=== PATIENT | male | born 1995 | race Caucasian/White ===

== ENCOUNTER 2019-10-23 15:10 | Inpatient (IN) | payer BC, OTHER ==
[~2019-10-23 15:10] MED LIST: Calcium Chloride 1 GM/10 ML Abboject SYRINGE ONE; Iopamidol-370 76% 500 ML 1 ML ONE; PHENYLEPHRINE-NS 100 MCG/ML 10 ML SYRINGE ONE; Rocuronium Bromide 10 MG/ML (10ML VIAL) ONE
[2019-10-23] MEDS ORDERED: Propofol 1,000 MG/100 ML VIAL IV ONE (15:15)
[2019-10-23 15:28] LABS: #Basophils 0.1 thou/uL (0.0-0.2); #Eosinphils 0.1 thou/uL (0.0-0.7); #Lymphocytes 4.2 thou/uL (1.20-3.40); #Monocytes 0.4 thou/uL (0.11-0.59); #Neutrophils 13.3 thou/uL (1.40-6.50); %Basophils 0.5 % (0.0-1.0); %Eosinophils 0.3 % (0.0-10.0); %Lymphocytes 23.3 % (21.0-51.0); Hemoglobin 14.8 g/dL (14.0-18.0); Mean Corpuscular HGB CONC 33.4 g/dL (32.0-36.0); Mean Corpuscular Hemoglobin 28.1 pg (27.0-31.0); Mean Corpuscular Volume 84.2 fL (78.0-98.0); Mean Platelet Volume 10.3 fL (7.4-10.4); Platelet Count 233 thou/uL (130-400); RBC Distribution Width 11.9 % (11.5-14.5); Red Blood Cell (RBC) Count 5.25 mill/uL (4.70-6.10); White Blood Cell (WBC) Count 17.9 thou/uL (4.8-10.8)
[2019-10-23 15:29] LABS: MDiff Complete? YES
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
[2019-10-23 15:35] LABS: INR-International Normal Ratio 1.2; Prothrombin Time 14.7 sec (12.0-14.7)
[2019-10-23] MEDS ORDERED: Fentanyl 100 MCG/2 ML VIAL ONE ×2 (15:38→16:04)
[2019-10-23 15:43] LABS: ALT (SGPT) 79 U/L (8-55); AST (SGOT) 143 U/L (5-34); Albumin 4.4 g/dL (3.5-5.0); Alkaline Phosphatase 58 U/L (40-110); Anion Gap 19 mmol/L (10-20); BUN (Urea Nitrogen) 19 mg/dL (8.9-20.6); Bilirubin, Total 0.5 mg/dL (0.2-1.2); Calc. Creatinine Clearance 0 mL/min (70-130); Calcium 8.8 mg/dL (7.8-10.44); Carbon Dioxide 22 mmol/L (22-29); Chloride 102 mmol/L (98-107); Estimated GFR-MDRD 54; Glucose 207 mg/dL (70-105); Potassium 3.8 mmol/L (3.5-5.1); Protein, Total 7.4 g/dL (6.0-8.3); Sodium 139 mmol/L (136-145)
[2019-10-23 15:51] LABS: Acetaminophen Less than 6.0 mcg/mL (10.0-30.0); Alcohol Less than 10 mg/dL (Less than 10); Magnesium 1.8 mg/dL (1.6-2.6); Salicylate Less than 8.0 mg/dL (15.0-30.0)
[2019-10-23] MEDS ORDERED: Adacel (T-DAP) 0.5 ML SYRINGE ONE (15:51)
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
[2019-10-23] MEDS ORDERED: manNITOL 20% 500 ML ONE (16:02)
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
[2019-10-23] MEDS ORDERED: Phenylephrine 10 MG/ML VIAL ONE ×2 (16:04→19:54)
[2019-10-23] MEDS ORDERED: Lidocaine 0.5%/Epinephrine 1:200,000 50 ml Vial ONE (16:10)
[2019-10-23] MEDS ORDERED: Thrombin 5000 UNITS/5 ML VIAL ONE ×3 (16:10→17:03)
[2019-10-23] MEDS ORDERED: Sodium Chloride 0.9% 10 ML ONE (16:11)
[2019-10-23 16:13] LABS: Actual Bicarbonate (HCO3a) 20.3 mEq/L (22-28); Analyzer IN Cardio ER; Base Excess (BEa) -4.5 mEq/L (-2.0 to +3.0); CO2 Tension 36.9 mmHg (35.0-45.0); Calcium, Ionized (arterial) 1.11 mmol/L (1.12-1.30); Carboxyhemoglobin (COHb) 0.3 gm% (0.0-3.0); Hemoglobin (Hb) 14.9 g/dL (14.0-18.0); O2 Tension (PaO2), arterial 77.4 mmHg (80.0-100.0); Potassium - ABG Lab 3.34 mmol/L (3.70-5.30); pH, Arterial 7.36 (7.35-7.45)
[2019-10-23] MEDS ORDERED: Mannitol 12.5 GM/50 ML IV SCH (16:15)
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
[2019-10-23 16:24] LABS: Bacteria/HPF None Seen HPF (None Seen); Bilirubin Negative (Negative); Blood, Urine 3+ (Negative); Clarity Clear (Clear); Glucose, Urine (Dipstick) Normal (Negative); Ketone, Urine Negative (Negative); Leukocyte Negative Leu/uL (Negative); Nitrite Negative (Negative); Protein, Urine (Dipstick) 100 mg/dL (Neg-Trace); RBC/HPF Greater than 50 HPF (0-3); Specific Gravity, Urine 1.045 (1.002-1.036); Squamous Epithelial 0-3 HPF (0-3); Urobilinogen Normal mg/dL (Less than 2)
[2019-10-23 16:25] LABS: ALV-art Gradient 232.975 (0-20)
[2019-10-23 16:33] LABS: Amphetamine Not Detected (NotDetected); Barbiturates Screen Not Detected (NotDetected); Benzodiazepine Screen Not Detected (NotDetected); Cocaine Metabolite Screen Not Detected (NotDetected); Medtox Reader # READER 4; Methadone Not Detected (NotDetected); Methamphetamine Not Detected (NotDetected); Opiate Screen Not Detected (NotDetected); Phencyclidine (PCP) Not Detected (NotDetected); THC/Cannabinoid Screen Not Detected (NotDetected); Tricyclic Screen Not Detected (NotDetected)
[2019-10-23 16:34] LABS: Medtox Control Line Valid? VALID (VALID); Oxycodone Screen Not Detected (NotDetected)
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
[2019-10-23] MEDS ORDERED: metroNIDAZOLE 500 MG/100 ML BAG ONE (16:47)
[2019-10-23] MEDS ORDERED: Dextrose 50% Abboject 50 ML SYRINGE SLOW IVP PRN (17:18)
[2019-10-23] MEDS ORDERED: Dextrose 5% in Water 1,000 ML IV PRN (17:18)
[2019-10-23] MEDS ORDERED: hydrALAZINE 20 MG/ML VIAL SLOW IVP PRN (17:18)
[2019-10-23] MEDS ORDERED: Calcium Chloride 1 GM/10 ML Abboject SYRINGE IVP SCH ×2 (17:30→22:15)
[2019-10-23] MEDS ORDERED: Magnesium 2 GM/50 ML 2 GM in Premix Bag 1 BAG IVPB SCH (17:30)
[2019-10-23] MEDS ORDERED: Ventilator Sedation Protocol 1 EACH FS SCH (17:30)
[2019-10-23] MEDS ORDERED: Morphine 2 MG/ML VIAL SLOW IVP PRN (17:59)
[2019-10-23] MEDS ORDERED: Lorazepam 2 MG/ML VIAL SLOW IVP PRN (17:59)
[2019-10-23] MEDS ORDERED: Propofol BOLUS 1,000 MG/100 ML VIAL IV PRN (17:59)
[2019-10-23] MEDS ORDERED: DISCONTINUE PREVIOUS NARCOTIC PAIN MEDICATIONS AND BENZODIAZEPINES FS SCH (17:59)
[2019-10-23] MEDS ORDERED: Fentanyl BOLUS 250 ML IVPB PRN (17:59)
[2019-10-23] MEDS ORDERED: Albumin 5% 500 ML ONE (18:08)
[2019-10-23] MEDS ORDERED: Lidocaine 1% w/Epinephrine 1:100K 20 ML VIAL ONE (18:28)
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
[2019-10-23] MEDS ORDERED: Rocuronium Bromide 50 MG/5 ML VIAL ONE ×2 (18:59→20:05)
[2019-10-23] MEDS ORDERED: Fosphenytoin Sodium 1,500 MG in Sodium Chloride 0.9% 50 ML IVPB SCH (19:00)
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
[2019-10-23] MEDS ORDERED: Fosphenytoin Sodium 1,500 MG in Sodium Chloride 0.9% 100 ML IVPB SCH (19:15)
[2019-10-23] MEDS ORDERED: PHENYLEPHRINE-NS 100 MCG/ML 10 ML SYRINGE ONE (19:26)
[2019-10-23] MEDS ORDERED: Vancomycin HCl 1.5 GM in Sodium Chloride 0.9% 250 ML 300 ML IVPB SCH (21:00)
[2019-10-23 21:06] LABS: Base Excess (BEa) -8.4 mEq/L (-2.0 to +3.0); CO2 Tension 40.4 mmHg (35.0-45.0); Calcium, Ionized (arterial) 1.03 mmol/L (1.12-1.30); Carboxyhemoglobin (COHb) 0.2 gm% (0.0-3.0); Hemoglobin (Hb) 10.1 g/dL (14.0-18.0); Potassium - ABG Lab 4.25 mmol/L (3.70-5.30); pH, Arterial 7.27 (7.35-7.45)
[2019-10-23 21:23] LABS: Puncture Site A-LINE
[2019-10-23] MEDS: fentaNYL Citrate/PF 2,000 MCG in Sodium Chloride 0.9% 60 ML IV SCH (21:29)
[2019-10-23] MEDS: Lactated Ringer's 1,000 ML IV SCH (21:32)
[2019-10-23] MEDS: Propofol 1,000 MG/100 ML VIAL IV PRN (21:56)
[2019-10-23 22:10] LABS: Lactic Acid 3.3 mmol/L (0.5-2.2)
[2019-10-23 22:12] LABS: Phosphorus 3.6 mg/dL (2.3-4.7)
[2019-10-23 22:16] LABS: Band 37 % (5-11); Hemoglobin 9.4 g/dL (14.0-18.0); Lymphocytes 2 % (21-51); MDiff Complete? YES; Mean Corpuscular HGB CONC 33.5 g/dL (32.0-36.0); Mean Corpuscular Hemoglobin 28.1 pg (27.0-31.0); Mean Corpuscular Volume 83.7 fL (78.0-98.0); Mean Platelet Volume 9.8 fL (7.4-10.4); Monocytes 3 % (0-10); Neutrophil 58 % (42-75); Platelet Count 168 thou/uL (130-400); RBC Distribution Width 13.3 % (11.5-14.5); Red Blood Cell (RBC) Count 3.33 mill/uL (4.70-6.10); White Blood Cell (WBC) Count 24.1 thou/uL (4.8-10.8)
[2019-10-23 22:26] LABS: Anion Gap 16 mmol/L (10-20); BUN (Urea Nitrogen) 19 mg/dL (8.9-20.6); Calc. Creatinine Clearance 0 mL/min (70-130); Calcium 7.1 mg/dL (7.8-10.44); Carbon Dioxide 15 mmol/L (22-29); Chloride 112 mmol/L (98-107); Estimated GFR-MDRD 59; Glucose 242 mg/dL (70-105); Magnesium 1.5 mg/dL (1.6-2.6); Potassium 4.3 mmol/L (3.5-5.1); Sodium 139 mmol/L (136-145)
[2019-10-23] MEDS ORDERED: Magnesium Sulfate 3 GM in Sodium Chloride 0.9% 100 ML IVPB SCH (22:30)
[2019-10-23] MEDS: Refresh Lacri-lube Opth Oint 7 GM TUBE FS PRN (22:31)
[2019-10-23] MEDS: Cefepime 2 GM in Sodium Chloride 0.9% 100 ML IVPB SCH (22:31)
[2019-10-23] MEDS: Sodium Chloride 0.9% 1,000 ML IV SCH (22:32)
[2019-10-23 22:47] LABS: CKMB 16.7 ng/mL (0-6.6)
[2019-10-23] MEDS: Famotidine/PF 20 mg/2ml Vial SLOW IVP SCH (23:29)
[2019-10-23] MEDS: Insulin Regular 300 UNITS/3 ML VIAL SC PRN (23:29)
--- NOTE | 2019-10-24 00:15 | PRG ---
DATE OF SERVICE: 10/23/2019 SUBJECTIVE: The patient was seen in the critical care unit during evening rounds after returning from the operating room. The patient is postop right frontal hemicraniotomy and a right lateral canthotomy by Dr. Parks. The patient also had multiple facial and tongue lacerations repaired in the OR. The patient did have some hypotension while in the OR, was given vasopressors. The patient also received 3 L of normal saline while in the operating room. The patient's lower extremity x-rays are still pending. GCS E1 V1 M5, total of 7T. OBJECTIVE: VITAL SIGNS: Tachycardic, blood pressure is stable. Urinary output is adequate for patient's age and weight. PLAN: Continue full ventilatory support, supportive care, pain, and sedation. Replace electrolytes. We will monitor for ectopy as the patient likely has a cardiac contusion as his troponin is elevated and his 12-lead EKG is showing sinus tach with right bundle-branch block, no ectopy noted. We will obtain an echocardiogram in the morning. We will ensure head of bed is at least 30 degrees at all times. Maintenance IV fluids LR 120 an hour. We will continue to monitor urinary output. The plan was discussed with the attending and also the patient's father. We will consult Dr. Cantu, Ophthalmology first thing in the morning. The ER did attempt to reach out to Dr. Cantu earlier this evening, but was unable to reach him. Dr. Parks with [facility] reports that his right intraocular pressure is stable, actually lowered after the procedure. We will need to closely monitor this. He recommends if the patient is unable to have an ophthalmology consult as soon as possible in the morning, that he may need to be transferred for these services. We will follow up on lower extremity x-rays. Job ID: [id number]
[2019-10-24] MEDS: metroNIDAZOLE 500 MG in Premix Bag 1 BAG IVPB SCH ×2 (01:46→08:17)
[2019-10-24] MEDS ORDERED: Acetaminophen 650 MG Suppository PR PRN (02:34)
[2019-10-24] MEDS: Sodium Chloride 0.9% 1,000 ML IV SCH ×4 (03:10→20:48)
[2019-10-24] MEDS ORDERED: Vancomycin 1.5 GRAM/300 ML BAG 1.5 GM in Premix Bag 1 BAG IVPB SCH (05:00)
[2019-10-24] MEDS: Lactated Ringer's 1,000 ML IV SCH (05:21)
[2019-10-24] MEDS: Propofol 1,000 MG/100 ML VIAL IV PRN ×2 (05:21→21:29)
[2019-10-24 05:24] LABS: INR-International Normal Ratio 1.3; Prothrombin Time 16.5 sec (12.0-14.7)
[2019-10-24 05:30] LABS: #Lymphocytes 1.2 thou/uL (1.20-3.40); #Monocytes 1.2 thou/uL (0.11-0.59); #Neutrophils 11.3 thou/uL (1.40-6.50); %Basophils 0.1 % (0.0-1.0); %Eosinophils 0.1 % (0.0-10.0); %Lymphocytes 8.5 % (21.0-51.0); %Monocytes 9.1 % (0.0-10.0); %Neutrophils 82.4 % (42.0-75.0); Hemoglobin 8.4 g/dL (14.0-18.0); Mean Corpuscular Volume 82.3 fL (78.0-98.0); Mean Platelet Volume 10.6 fL (7.4-10.4); Platelet Count 124 thou/uL (130-400); RBC Distribution Width 13.3 % (11.5-14.5); Red Blood Cell (RBC) Count 3.01 mill/uL (4.70-6.10); White Blood Cell (WBC) Count 13.7 thou/uL (4.8-10.8)
[2019-10-24 05:44] LABS: Dilantin 18.9 ug/mL (10.0-20.0)
[2019-10-24 05:48] LABS: Lactic Acid 4.7 mmol/L (0.5-2.2)
[2019-10-24 05:54] LABS: Critical Call Chem Troponin I RESULT DECREASING
[2019-10-24 06:14] LABS: Anion Gap 13 mmol/L (10-20); BUN (Urea Nitrogen) 17 mg/dL (8.9-20.6); Calc. Creatinine Clearance 102 mL/min (70-130); Calcium 9.1 mg/dL (7.8-10.44); Carbon Dioxide 20 mmol/L (22-29); Chloride 113 mmol/L (98-107); Estimated GFR-MDRD 63; Glucose 146 mg/dL (70-105); Magnesium 2.1 mg/dL (1.6-2.6); Potassium 5.5 mmol/L (3.5-5.1); Sodium 140 mmol/L (136-145)
[2019-10-24 06:17] LABS: CKMB 16.5 ng/mL (0-6.6); Critical Call CKMB RESULT DECREASING
[2019-10-24] MEDS ORDERED: Sodium Chloride 0.9% 1,000 ML IV SCH (06:45)
[2019-10-24 07:28] LABS: Actual Bicarbonate (HCO3a) 20.1 mEq/L (22-28); Base Excess (BEa) -4.2 mEq/L (-2.0 to +3.0); CO2 Tension 33.2 mmHg (35.0-45.0); Calcium, Ionized (arterial) 1.22 mmol/L (1.12-1.30); Carboxyhemoglobin (COHb) 0.7 gm% (0.0-3.0); Hemoglobin (Hb) 7.9 g/dL (14.0-18.0); O2 Tension (PaO2), arterial 149.4 mmHg (80.0-100.0); Potassium - ABG Lab 4.95 mmol/L (3.70-5.30)
[2019-10-24 07:29] LABS: Puncture Site LINE
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
[2019-10-24] MEDS: Cefepime 2 GM in Sodium Chloride 0.9% 100 ML IVPB SCH (08:17)
[2019-10-24] MEDS: Famotidine/PF 20 mg/2ml Vial SLOW IVP SCH ×2 (08:17→21:28)
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
--- NOTE | 2019-10-24 09:31 | RAD ---
PORTABLE CHEST: HISTORY: Respiratory distress. COMPARISON: An 10/23/2019 exam. FINDINGS: Heart size and mediastinum within normal limits. Endotracheal and NG tubes are in satisfactory posit ion. Patchy infiltrative change in the right base and left parahilar region are again noted. Given differences in technique, I do not appreciate any significant change. IMPRESSION: Stable exam. POS: OFF
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
[2019-10-24] MEDS: Acetaminophen 650 MG/20.3 ML UDCUP PO SCH ×3 (11:43→23:43)
[2019-10-24] MEDS ORDERED: Vecuronium 10 MG VIAL ONE (14:44)
[2019-10-24] MEDS ORDERED: Midazolam HCl 2 mg/2 ml Vial ONE (14:44)
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
[2019-10-24] MEDS ORDERED: Vecuronium 10 MG VIAL IV SCH (15:00)
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
[2019-10-24 16:07] LABS: #Lymphocytes 1.2 thou/uL (1.20-3.40); #Neutrophils 7.3 thou/uL (1.40-6.50); %Eosinophils 0.1 % (0.0-10.0); %Lymphocytes 12.4 % (21.0-51.0); %Monocytes 10.6 % (0.0-10.0); %Neutrophils 76.9 % (42.0-75.0); Hemoglobin 7.3 g/dL (14.0-18.0); Mean Corpuscular HGB CONC 34.5 g/dL (32.0-36.0); Mean Corpuscular Hemoglobin 28.5 pg (27.0-31.0); Mean Corpuscular Volume 82.8 fL (78.0-98.0); Mean Platelet Volume 9.9 fL (7.4-10.4); Platelet Count 84 thou/uL (130-400); RBC Distribution Width 13.3 % (11.5-14.5); Red Blood Cell (RBC) Count 2.56 mill/uL (4.70-6.10); White Blood Cell (WBC) Count 9.5 thou/uL (4.8-10.8)
[2019-10-24 16:09] LABS: INR-International Normal Ratio 1.4; PTT 36.3 sec (22.9-36.1); Prothrombin Time 16.9 sec (12.0-14.7)
[2019-10-24 16:17] LABS: Lactic Acid 1.4 mmol/L (0.5-2.2)
[2019-10-24 16:23] LABS: Anion Gap 13 mmol/L (10-20); BUN (Urea Nitrogen) 14 mg/dL (8.9-20.6); CK (CPK) 3356 U/L (30-200); Calc. Creatinine Clearance 135 mL/min (70-130); Calcium 8.1 mg/dL (7.8-10.44); Carbon Dioxide 20 mmol/L (22-29); Chloride 112 mmol/L (98-107); Estimated GFR-MDRD 87; Glucose 150 mg/dL (70-105); Magnesium 1.7 mg/dL (1.6-2.6); Phosphorus 2.5 mg/dL (2.3-4.7); Potassium 4.3 mmol/L (3.5-5.1); Sodium 141 mmol/L (136-145)
[2019-10-24 16:28] LABS: Critical Call Chem Troponin I RESULT DECREASING; Troponin I 1.024 ng/mL (< 0.028)
[2019-10-24] MEDS: Midazolam HCl 2 mg/2 ml Vial SLOW IVP SCH (16:30)
[2019-10-24] MEDS: Bacitracin 1 PK TOP SCH ×2 (16:33→21:29)
[2019-10-24] MEDS ORDERED: Sodium Phosphate 30 MMOL in Sodium Chloride 0.9% 250 ML 250 ML IVPB SCH (17:00)
[2019-10-24] MEDS ORDERED: Magnesium 2 GM/50 ML 2 GM in Premix Bag 1 BAG IVPB SCH (17:00)
[2019-10-24] MEDS: fentaNYL Citrate/PF 2,000 MCG in Sodium Chloride 0.9% 60 ML IV SCH (18:35)
[2019-10-24] MEDS: diphenhydrAMINE 50 MG/ML VIAL IVP PRN (21:28)
[2019-10-24] MEDS: cefTRIAXone\\ROCEPHIN 2 GM in Sodium Chloride 0.9% 100 ML IVPB SCH (21:28)
[2019-10-24] MEDS: Chlorhexidine Gluconate 15 ML UDCUP SSP SCH (21:29)
--- NOTE | 2019-10-24 23:22 | PRG ---
DATE OF SERVICE: 10/24/2019 SUBJECTIVE: The patient was seen during evening rounds on the critical care unit. The patient currently sedated on propofol 20 mcg and fentanyl 80 mcg. The patient's vitals are stable, heart rate in the 80s, sinus rhythm with no ectopy. Urinary output is adequate for patient's age and weight. The patient is currently afebrile. The patient remains on full mechanical ventilatory support. The patient has been following commands for the nurse and will give a thumbs up when asked. The patient did receive a unit of blood earlier this morning and another unit of packed red blood cells this evening. We will repeat a hemogram at approximately 1 a.m. We will continue to monitor hemogram every [address] Zepeda plans to do a bedside trach and PEG tomorrow morning. The patient's GCS remains E1 V1 M6. The patient does favor his right side more than his left. We will continue full mechanical ventilatory support. We will continue to monitor urinary output. Continue with nonpharmacological VTE prophylaxis due to traumatic brain injury. [facility] plans to take the patient back to the OR on Thursday for repair of his bilateral mandibular fractures in which the patient's jaws will be wired shut. Job ID: [id number]
[2019-10-25 01:14] LABS: Hemoglobin 7.4 g/dL (14.0-18.0); Mean Corpuscular HGB CONC 34.2 g/dL (32.0-36.0); Mean Corpuscular Volume 81.8 fL (78.0-98.0); Mean Platelet Volume 10.3 fL (7.4-10.4); Platelet Count 67 thou/uL (130-400); RBC Distribution Width 14.1 % (11.5-14.5); Red Blood Cell (RBC) Count 2.63 mill/uL (4.70-6.10)
[2019-10-25] MEDS: Sodium Chloride 0.9% 1,000 ML IV SCH ×4 (01:56→23:21)
[2019-10-25] MEDS: Refresh Lacri-lube Opth Oint 7 GM TUBE FS PRN (01:56)
[2019-10-25] MEDS: Propofol 1,000 MG/100 ML VIAL IV PRN ×2 (05:22→16:07)
[2019-10-25 05:45] LABS: Anion Gap 12 mmol/L (10-20); BUN (Urea Nitrogen) 12 mg/dL (8.9-20.6); CK (CPK) 3136 U/L (30-200); Calc. Creatinine Clearance 164 mL/min (70-130); Calcium 7.5 mg/dL (7.8-10.44); Carbon Dioxide 22 mmol/L (22-29); Chloride 111 mmol/L (98-107); Estimated GFR-MDRD Greater than 90; Glucose 116 mg/dL (70-105); Magnesium 1.9 mg/dL (1.6-2.6); Phosphorus 2.4 mg/dL (2.3-4.7); Potassium 3.8 mmol/L (3.5-5.1); Sodium 141 mmol/L (136-145)
[2019-10-25 06:26] LABS: Fibrinogen 358 mg/dL (253-463)
[2019-10-25 06:28] LABS: INR-International Normal Ratio 1.3; PTT 36.7 sec (22.9-36.1); Prothrombin Time 16.2 sec (12.0-14.7)
[2019-10-25] MEDS: Acetaminophen 650 MG/20.3 ML UDCUP PO SCH ×4 (06:34→23:21)
[2019-10-25 06:35] LABS: D-Dimer Test 3.72 *mcg/mL (0.27-0.43)
[2019-10-25 06:39] LABS: Platelet Count 69 thou/uL (130-400)
[2019-10-25 07:03] LABS: FSP-Qualitative ABNORMAL (Normal)
[2019-10-25 07:04] LABS: FSP-Semiquantitative >=20 & <40 mcg/mL (Less than 5)
[2019-10-25 07:28] LABS: #Lymphocytes 1.5 thou/uL (1.20-3.40); #Monocytes 0.7 thou/uL (0.11-0.59); #Neutrophils 6.8 thou/uL (1.40-6.50); %Basophils 0.1 % (0.0-1.0); %Eosinophils 0.1 % (0.0-10.0); %Lymphocytes 16.7 % (21.0-51.0); %Monocytes 7.8 % (0.0-10.0); %Neutrophils 75.3 % (42.0-75.0); Hemoglobin 7.3 g/dL (14.0-18.0); Mean Corpuscular Hemoglobin 27.8 pg (27.0-31.0); Mean Corpuscular Volume 81.7 fL (78.0-98.0); Mean Platelet Volume 11.4 fL (7.4-10.4); Platelet Count 68 thou/uL (130-400); RBC Distribution Width 14.5 % (11.5-14.5); Red Blood Cell (RBC) Count 2.62 mill/uL (4.70-6.10); White Blood Cell (WBC) Count 9.1 thou/uL (4.8-10.8)
[2019-10-25] MEDS: Midazolam HCl 2 mg/2 ml Vial SLOW IVP SCH (07:38)
[2019-10-25] MEDS ORDERED: Midazolam HCl 2 mg/2 ml Vial SLOW IVP SCH (07:45)
[2019-10-25] MEDS ORDERED: CEFAZOLIN 1 GM VIAL SLOW IVP SCH (08:00)
[2019-10-25] MEDS ORDERED: Vecuronium 10 MG VIAL IVP SCH (08:00)
[2019-10-25] MEDS ORDERED: Lidocaine 1% w/Epinephrine 1:100K 20 ML VIAL ONE (08:07)
--- NOTE | 2019-10-25 08:10 | RAD ---
PORTABLE CHEST: Date: 10/25/2019 HISTORY: Intubation. COMPARISON: Prior day's study. FINDINGS: Endotracheal and NG tubes are in satisfactory position. Heart and mediastinal structures are within n ormal limits. The interstitial changes in the lung bases have improved as compared to the prior exam. IMPRESSION: Improving parenchymal lung changes. Otherwise stable chest. POS: KAMARI
[2019-10-25] MEDS: Dexamethasone 4 MG in Sodium Chloride 0.9% 50 ML IVPB SCH ×3 (08:18→19:48)
--- NOTE | 2019-10-25 09:51 | CT ---
CT HEAD WITHOUT CONTRAST: Date: 10/25/2019 INDICATION: Postop follow-up. Comparison made to exam of 10/24/2019 and 10/23/2019. FINDINGS: Postop craniectomy changes right cerebral hemisphere again noted. Operative defect in the right front al lobe is seen at the site of evacuation of the intraparenchymal hematoma. Pneumocephalus at this op erative site is again noted. The right side subdural hematoma is again noted without significant parker ge in size. This extends over the right convexity at the operative site and over the posterior right convexity involving the right parietal and temporal lobes with subdural extending over the right tent orium as noted previously. Small interhemispheric falx subdural is unchanged in appearance. There is no midline shift. Abnormal lucency in the right parietal lobe and in both posterior occipital lobes is seen suggesting parenchymal contusion. This is similar in appearance to yesterday. There has been decrease in the sub arachnoid blood described in the sylvian fissure and around the brainstem yesterday. IMPRESSION: Postop changes again noted. No midline shift. The subdural hematoma has not significantly changed. So me improvement in subarachnoid hemorrhage. Parenchymal lucency in the right parietal lobe and both po sterior occipital lobes unchanged in appearance. POS: AGW
[2019-10-25 10:23] LABS: Hemoglobin 7.3 g/dL (14.0-18.0); Mean Corpuscular HGB CONC 33.2 g/dL (32.0-36.0); Mean Corpuscular Hemoglobin 27.6 pg (27.0-31.0); Mean Corpuscular Volume 83.1 fL (78.0-98.0); Mean Platelet Volume 10.1 fL (7.4-10.4); Platelet Count 71 thou/uL (130-400); RBC Distribution Width 14.3 % (11.5-14.5); Red Blood Cell (RBC) Count 2.64 mill/uL (4.70-6.10); White Blood Cell (WBC) Count 8.6 thou/uL (4.8-10.8)
--- NOTE | 2019-10-25 10:25 | PRG ---
DATE OF SERVICE: 10/25/2019 Mr. Kim is postoperative day 2. His head CT is stable. Shift is resolved. He has not developed increased ventricular caliber at this point. His flap remains full, intense as expected. His drain output was approximately 140 mL over the last 24 hours. We will leave this in place obviously. He is on fosphenytoin for seizure prophylaxis. He is undergoing tracheostomy and PEG tube placement today. Multiple teams are following along the plan. Tomorrow is likely wiring of his jaw shut. I just recommend the procedure be done with some head of bed up, preferably 15 to 30 degrees or reverse Trendelenburg to promote reduction and cerebral edema. Job ID: [id number]
[2019-10-25] MEDS: Chlorhexidine Gluconate 15 ML UDCUP SSP SCH ×2 (11:35→19:59)
[2019-10-25] MEDS: Bacitracin 1 PK TOP SCH ×3 (11:35→20:54)
[2019-10-25] MEDS: Famotidine/PF 20 mg/2ml Vial SLOW IVP SCH ×2 (11:36→20:55)
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
[2019-10-25] MEDS: diphenhydrAMINE 50 MG/ML VIAL IVP PRN ×2 (16:47→23:24)
[2019-10-25 17:10] LABS: Mean Corpuscular HGB CONC 34.3 g/dL (32.0-36.0); Mean Corpuscular Hemoglobin 28.3 pg (27.0-31.0); Mean Corpuscular Volume 82.3 fL (78.0-98.0); Mean Platelet Volume 10.6 fL (7.4-10.4); Platelet Count 71 thou/uL (130-400); RBC Distribution Width 14.2 % (11.5-14.5); Red Blood Cell (RBC) Count 2.81 mill/uL (4.70-6.10); White Blood Cell (WBC) Count 9.5 thou/uL (4.8-10.8)
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
[2019-10-25] MEDS: fentaNYL Citrate/PF 2,000 MCG in Sodium Chloride 0.9% 60 ML IV SCH (20:09)
[2019-10-25] MEDS: cefTRIAXone\\ROCEPHIN 2 GM in Sodium Chloride 0.9% 100 ML IVPB SCH (20:55)
[2019-10-26] MEDS: Propofol 1,000 MG/100 ML VIAL IV PRN ×4 (02:54→20:42)
[2019-10-26] MEDS: Dexamethasone 4 MG in Sodium Chloride 0.9% 50 ML IVPB SCH ×4 (02:54→20:05)
[2019-10-26 04:25] LABS: #Lymphocytes 0.7 thou/uL (1.20-3.40); #Monocytes 0.5 thou/uL (0.11-0.59); #Neutrophils 7.5 thou/uL (1.40-6.50); %Basophils 0.1 % (0.0-1.0); %Eosinophils 0.1 % (0.0-10.0); %Lymphocytes 8.3 % (21.0-51.0); %Neutrophils 85.6 % (42.0-75.0); Hemoglobin 7.8 g/dL (14.0-18.0); Mean Corpuscular Volume 82.4 fL (78.0-98.0); Mean Platelet Volume 10.6 fL (7.4-10.4); Platelet Count 77 thou/uL (130-400); RBC Distribution Width 14.2 % (11.5-14.5); White Blood Cell (WBC) Count 8.8 thou/uL (4.8-10.8)
[2019-10-26] MEDS: Ondansetron PF 4 MG/2 ML Vial IVP PRN (04:51)
[2019-10-26] MEDS: diphenhydrAMINE 50 MG/ML VIAL IVP PRN ×2 (04:57→11:35)
[2019-10-26] MEDS: Sodium Chloride 0.9% 1,000 ML IV SCH ×3 (04:58→20:05)
[2019-10-26 05:34] LABS: Anion Gap 10 mmol/L (10-20); BUN (Urea Nitrogen) 11 mg/dL (8.9-20.6); Calc. Creatinine Clearance 186 mL/min (70-130); Carbon Dioxide 24 mmol/L (22-29); Chloride 109 mmol/L (98-107); Estimated GFR-MDRD Greater than 90; Glucose 141 mg/dL (70-105); Phosphorus 2.9 mg/dL (2.3-4.7); Potassium 4.3 mmol/L (3.5-5.1); Sodium 139 mmol/L (136-145)
[2019-10-26] MEDS: Acetaminophen 650 MG/20.3 ML UDCUP PO SCH ×4 (05:34→23:34)
[2019-10-26 07:45] LABS: Actual Bicarbonate (HCO3a) 24.3 mEq/L (22-28); Base Excess (BEa) -0.6 mEq/L (-2.0 to +3.0); Carboxyhemoglobin (COHb) 0.3 gm% (0.0-3.0); Hemoglobin (Hb) 7.5 g/dL (14.0-18.0); O2 Tension (PaO2), arterial 106.3 mmHg (80.0-100.0); pH, Arterial 7.39 (7.35-7.45)
[2019-10-26 07:46] LABS: Calcium, Ionized (arterial) 1.13 mmol/L (1.12-1.30); Potassium - ABG Lab 4.35 mmol/L (3.70-5.30)
[2019-10-26 07:47] LABS: Puncture Site LRA
[2019-10-26] MEDS ORDERED: Lidocaine 1% (PF) 30 ML VIAL ONE (10:50)
[2019-10-26] MEDS ORDERED: Iopamidol 370 76% 50 ML VIAL FS ONE (11:20)
[2019-10-26] MEDS: Famotidine/PF 20 mg/2ml Vial SLOW IVP SCH ×2 (11:57→20:41)
[2019-10-26] MEDS: Ascorbic Acid 500 mg Chewable Tablet PO SCH ×2 (11:57→17:40)
[2019-10-26] MEDS: Ferrous Sulfate 325 MG TAB PO SCH ×2 (11:57→17:40)
[2019-10-26] MEDS: Chlorhexidine Gluconate 15 ML UDCUP SSP SCH ×2 (11:58→20:42)
[2019-10-26] MEDS: Bacitracin 1 PK TOP SCH ×3 (11:58→20:42)
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
[2019-10-26] MEDS ORDERED: Rocuronium Bromide 10 MG/ML (10ML VIAL) ONE (17:07)
[2019-10-26] MEDS: Furosemide 20 MG/2 ML VIAL SLOW IVP SCH (17:40)
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
--- NOTE | 2019-10-26 18:00 | RAD ---
Exam:Left elbow 4 views HISTORY: Pain. Trauma. COMPARISON: None FINDINGS: Possible radiopaque foreign body or bandage material projecting over the antecubital soft t issues No joint effusion. No fracture, cortical irregularity or periosteal reaction. IMPRESSION: 1. Possible bandage material foreign body projecting over the antecubital soft tissues. 2. No fracture.
--- NOTE | 2019-10-26 18:02 | RAD ---
Exam: Chest one view HISTORY:Trauma. Pain. Comparison: 10/25/2019 FINDINGS: Lines and tubes: Interval removal of a endotracheal and nasogastric tube. Interval placemen t of a tracheostomy. Cardiac silhouette: Normal Aorta: Unremarkable Pulmonary vessels: Normal Costophrenic angles: Small right-sided effusion LUNGS: Multi lobar consolidation likely representing pulmonary contusions. Pneumothorax: None Osseous abnormalities: None IMPRESSION: 1. Multi lobar pulmonary opacities suggesting contusion. 2. Interval removal of a endotracheal and nasogastric tube. Interval placement of a tracheostomy.
[2019-10-26] MEDS: fentaNYL Citrate/PF 2,000 MCG in Sodium Chloride 0.9% 60 ML IV SCH (20:06)
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
[2019-10-26] MEDS: cefTRIAXone\\ROCEPHIN 2 GM in Sodium Chloride 0.9% 100 ML IVPB SCH (20:41)
[2019-10-27] MEDS ORDERED: Dexamethasone Sod Phosphate 4 MG in Sodium Chloride 0.9% 50 ML IVPB SCH (02:00)
[2019-10-27] MEDS: Sodium Chloride 0.9% 1,000 ML IV SCH ×4 (02:19→23:24)
[2019-10-27] MEDS: Propofol 1,000 MG/100 ML VIAL IV PRN ×4 (02:34→21:28)
[2019-10-27] MEDS: Furosemide 20 MG/2 ML VIAL SLOW IVP SCH (03:30)
[2019-10-27] MEDS: Acetaminophen 650 MG/20.3 ML UDCUP PO SCH ×3 (03:47→18:29)
[2019-10-27 04:11] LABS: Anion Gap 12 mmol/L (10-20); BUN (Urea Nitrogen) 12 mg/dL (8.9-20.6); Calc. Creatinine Clearance 175 mL/min (70-130); Calcium 8.3 mg/dL (7.8-10.44); Carbon Dioxide 27 mmol/L (22-29); Chloride 106 mmol/L (98-107); Estimated GFR-MDRD Greater than 90; Glucose 147 mg/dL (70-105); Magnesium 1.9 mg/dL (1.6-2.6); Sodium 141 mmol/L (136-145)
[2019-10-27] MEDS: diphenhydrAMINE 50 MG/ML VIAL IVP PRN ×2 (04:36→11:47)
[2019-10-27 04:43] LABS: #Lymphocytes 0.9 thou/uL (1.20-3.40); #Monocytes 0.5 thou/uL (0.11-0.59); #Neutrophils 7.3 thou/uL (1.40-6.50); %Basophils 0.1 % (0.0-1.0); %Eosinophils 0.1 % (0.0-10.0); %Lymphocytes 10.4 % (21.0-51.0); %Monocytes 5.6 % (0.0-10.0); %Neutrophils 83.7 % (42.0-75.0); Hemoglobin 8.1 g/dL (14.0-18.0); Mean Corpuscular HGB CONC 34.5 g/dL (32.0-36.0); Mean Corpuscular Hemoglobin 28.7 pg (27.0-31.0); Mean Corpuscular Volume 83.3 fL (78.0-98.0); Mean Platelet Volume 10.3 fL (7.4-10.4); Platelet Count 115 thou/uL (130-400); RBC Distribution Width 14.1 % (11.5-14.5); Red Blood Cell (RBC) Count 2.84 mill/uL (4.70-6.10); White Blood Cell (WBC) Count 8.7 thou/uL (4.8-10.8)
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
[2019-10-27] MEDS: Ferrous Sulfate 325 MG TAB PO SCH ×2 (08:21→18:29)
[2019-10-27] MEDS: Chlorhexidine Gluconate 15 ML UDCUP SSP SCH ×2 (08:21→21:07)
[2019-10-27] MEDS: Ascorbic Acid 500 mg Chewable Tablet PO SCH ×2 (08:21→18:29)
--- NOTE | 2019-10-27 10:07 | PRG ---
DATE OF SERVICE: 10/27/2019 Mr. Kim continues to demonstrate improvement. His head CT demonstrates expected herniation out of the cranial defect with no significant increase in ventricular caliber. There is reduction in the subdural or the extra-axial clot. His drain output has picked up a bit. Some of this may be CSF and we will monitor this, although it could be just liquification of the clot. He is going for a facial fixation today. Job ID: [id number]
[2019-10-27] MEDS: Bacitracin 1 PK TOP SCH ×3 (10:14→21:07)
[2019-10-27] MEDS ORDERED: PROPOFOL 200 MG/20 ML VIAL ONE (10:46)
[2019-10-27] MEDS ORDERED: Rocuronium Bromide 10 MG/ML (10ML VIAL) ONE (10:46)
[2019-10-27] MEDS: fentaNYL Citrate/PF 2,000 MCG in Sodium Chloride 0.9% 60 ML IV SCH (11:42)
[2019-10-27] MEDS: Famotidine/PF 20 mg/2ml Vial SLOW IVP SCH ×2 (11:51→21:07)
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
[2019-10-27] MEDS ORDERED: Chlorhexidine Gluconate 15 ML UDCUP SSP ONE (16:28)
[2019-10-27] MEDS ORDERED: Hydrocortisone 1% Cream 30 GM TUBE ONE (16:28)
[2019-10-27] MEDS ORDERED: Lidocaine 1% w/Epinephrine 1:100K 20 ML VIAL ONE ×2 (16:28→21:39)
[2019-10-27] MEDS ORDERED: Midazolam HCl 2 mg/2 ml Vial ONE ×2 (18:51→23:51)
[2019-10-27] MEDS ORDERED: Fentanyl 250 MCG/5 ML VIAL ONE ×2 (18:51→21:31)
[2019-10-27] MEDS: cefTRIAXone\\ROCEPHIN 2 GM in Sodium Chloride 0.9% 100 ML IVPB SCH (21:07)
[2019-10-27] MEDS ORDERED: cefTRIAXone\\ROCEPHIN 1 GM VIAL ONE (21:34)
[2019-10-27] MEDS ORDERED: Famotidine/PF 20 mg/2ml Vial ONE (22:31)
[2019-10-27] MEDS ORDERED: Fentanyl 100 MCG/2 ML VIAL ONE (23:51)
[2019-10-28] MEDS: Acetaminophen 650 MG/20.3 ML UDCUP PO SCH ×4 (00:43→17:53)
[2019-10-28 03:54] LABS: Band 4 % (5-11); Hemoglobin 9.2 g/dL (14.0-18.0); Hypochromia SLIGHT = 6-15 cells (100X) (0-5/hpf); Lymphocytes 7 % (21-51); MDiff Complete? YES; Mean Corpuscular HGB CONC 34.4 g/dL (32.0-36.0); Mean Corpuscular Hemoglobin 28.7 pg (27.0-31.0); Mean Corpuscular Volume 83.6 fL (78.0-98.0); Mean Platelet Volume 9.7 fL (7.4-10.4); Monocytes 18 % (0-10); Neutrophil 71 % (42-75); Platelet Count 170 thou/uL (130-400); Platelet Morphology Comment Appears Adequate; RBC Distribution Width 14.4 % (11.5-14.5); White Blood Cell (WBC) Count 9.6 thou/uL (4.8-10.8)
[2019-10-28 04:01] LABS: Anion Gap 10 mmol/L (10-20); BUN (Urea Nitrogen) 14 mg/dL (8.9-20.6); CK (CPK) 1822 U/L (30-200); Calc. Creatinine Clearance 174 mL/min (70-130); Carbon Dioxide 27 mmol/L (22-29); Chloride 103 mmol/L (98-107); Estimated GFR-MDRD Greater than 90; Glucose 99 mg/dL (70-105); Magnesium 1.8 mg/dL (1.6-2.6); Phosphorus 2.8 mg/dL (2.3-4.7); Potassium 3.4 mmol/L (3.5-5.1); Sodium 137 mmol/L (136-145)
[2019-10-28] MEDS: Sodium Chloride 0.9% 1,000 ML IV SCH ×3 (04:22→17:52)
[2019-10-28] MEDS: Propofol 1,000 MG/100 ML VIAL IV PRN ×3 (04:55→18:12)
[2019-10-28] MEDS: fentaNYL Citrate/PF 2,000 MCG in Sodium Chloride 0.9% 60 ML IV SCH ×2 (04:55→23:29)
[2019-10-28] MEDS ORDERED: Magnesium Sulfate 3 GM in Sodium Chloride 0.9% 100 ML IVPB SCH ×2 (06:45→11:15)
[2019-10-28] MEDS ORDERED: Potassium Chloride 20 MEQ in Premix Bag 1 BAG IVPB SCH (07:00)
--- NOTE | 2019-10-28 09:26 | CT ---
HEAD CT WITHOUT CONTRAST: HISTORY: New onset left arm weakness. COMPARISON: None. FINDINGS: Hemorrhage: Redemonstration of an intraparenchymal hematoma in the right frontal lobe. There is assoc iated edema. The overall degree of hemorrhage and edema measures 3.8 x 3.8 cm. There is a hemorrhage along with edema involving the right occipital lobe. The overall degree of affected parenc hyma measures 3.7 x 2.5 cm. Additional nonhemorrhagic edema is noted in the left occipital lobe. Stable subdural blood along the tentorium and falx. Brain parenchyma: Posttraumatic changes as described above. There is herniation of the brain parenchy mal a right frontotemporal craniectomy defect. There is extraaxial blood just deep to the craniotomy flap. There is a drain within the scalp.Minimal anterior right to left subfalcine herniati on. Ventricular system: Ventricles and sulci are patent and symmetric. Calvarium: Intact. Sinuses and mastoid air cells: Persistent opacification of the sinuses. Persistent multifocal facial fractures. IMPRESSION: Stable posttraumatic change. Transcribed Date/Time: 10/28/2019 9:32 AM
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
[2019-10-28] MEDS: Chlorhexidine Gluconate 15 ML UDCUP SSP SCH ×2 (11:09→20:39)
[2019-10-28] MEDS: Ascorbic Acid 500 mg Chewable Tablet PO SCH ×2 (11:09→17:52)
[2019-10-28] MEDS: Bacitracin 1 PK TOP SCH ×3 (11:09→20:37)
[2019-10-28] MEDS: Dexamethasone 4 mg/ml Vial SLOW IVP SCH ×3 (11:09→20:37)
[2019-10-28] MEDS: Ferrous Sulfate 325 MG TAB PO SCH ×2 (11:09→17:52)
[2019-10-28] MEDS: Famotidine/PF 20 mg/2ml Vial SLOW IVP SCH ×2 (11:09→20:37)
[2019-10-28] MEDS: diphenhydrAMINE 50 MG/ML VIAL IVP PRN (11:40)
--- NOTE | 2019-10-28 12:34 | PRG ---
DATE OF SERVICE: Mr. Kim is postoperative day 5 following right-sided hemicraniectomy and duraplasty with subdural and right frontal hematoma evacuation. He underwent 4-hour procedure yesterday and has had delayed emergence in regard to moving his left side. Head CT demonstrates a bit more herniation in particular at the motor strip, which is not unusual. This will subsequently begin to decrease as he continues to recover. MRI of the cervical spine is negative for cord impingement. On exam, he is sedated on 25 mcg/kg per minute of propofol. His jaw has been wired shut due to his mandibular fracture. He localizes on the right side and weakly withdraws in the left leg and with very little withdrawal on the left arm. Prior to his surgery yesterday, he was following commands. Again, I think it is just the duration of the surgery and the anesthesia coupled with his head injury and simply going to take time. We will leave the subgaleal drain in at this point, it has put out 120 mL over the last day and appears to be still sanguinous. I would recommend trying to keep the sodium 145 to 150. We will also check a Dilantin level, but a few days ago was therapeutic at 18. He has a filter in place and I have let the family know that it will simply take time. Job ID: [id number]
--- NOTE | 2019-10-28 12:37 | ULT ---
ULTRASOUND DOPPLER DUPLEX VENOUS LEFT UPPER EXTREMITY: DATE: 10/28/2019 HISTORY: 24-year-old male with left upper extremity swelling TECHNIQUE: Grayscale, color-flow, and spectral analysis, of the left internal jugular, subclavian, axillary, bra chial, basilic, cephalic, radial, and ulnar, veins. Compression and release applied to all veins except the subclavian. FINDINGS: There is soft tissue edema in the forearm. There is occlusive thrombus in the cephalic vein throughout the arm and forearm. The subclavian vein could not be imaged because of overlying bandages. There is no thrombus in the rest of the visualized veins. IMPRESSION: Occlusive thrombosis of the entire left cephalic vein
[2019-10-28] MEDS: Sodium Chloride 1 GM TAB PER TUBE SCH ×2 (12:50→20:36)
[2019-10-28] MEDS: Insulin Regular 300 UNITS/3 ML VIAL SC PRN (19:02)
[2019-10-28] MEDS: cefTRIAXone\\ROCEPHIN 2 GM in Sodium Chloride 0.9% 100 ML IVPB SCH (20:37)
[2019-10-28] MEDS ORDERED: cefTRIAXone\\ROCEPHIN 2 GM VIAL ONE (21:02)
[2019-10-29] MEDS: Acetaminophen 650 MG/20.3 ML UDCUP PO SCH ×6 (00:13→20:44)
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
[2019-10-29] MEDS: Dexamethasone 4 mg/ml Vial SLOW IVP SCH (03:17)
[2019-10-29] MEDS: Sodium Chloride 0.9% 1,000 ML IV SCH (03:18)
[2019-10-29] MEDS: Propofol 1,000 MG/100 ML VIAL IV PRN ×2 (03:18→13:15)
[2019-10-29] MEDS: Sodium Chloride 1 GM TAB PER TUBE SCH ×3 (03:18→20:44)
[2019-10-29 05:12] LABS: Anion Gap 12 mmol/L (10-20); BUN (Urea Nitrogen) 14 mg/dL (8.9-20.6); Calc. Creatinine Clearance 186 mL/min (70-130); Calcium 7.6 mg/dL (7.8-10.44); Carbon Dioxide 24 mmol/L (22-29); Chloride 107 mmol/L (98-107); Estimated GFR-MDRD Greater than 90; Glucose 131 mg/dL (70-105); Magnesium 2.2 mg/dL (1.6-2.6); Potassium 3.8 mmol/L (3.5-5.1); Sodium 139 mmol/L (136-145)
[2019-10-29 05:30] LABS: Band 5 % (5-11); Hemoglobin 8.4 g/dL (14.0-18.0); Lymphocytes 8 % (21-51); MDiff Complete? YES; Mean Corpuscular HGB CONC 32.1 g/dL (32.0-36.0); Mean Corpuscular Hemoglobin 27.2 pg (27.0-31.0); Mean Corpuscular Volume 84.6 fL (78.0-98.0); Mean Platelet Volume 10.4 fL (7.4-10.4); Metamyelocyte 2 % (0-0); Monocytes 8 % (0-10); Neutrophil 77 % (42-75); Platelet Count 194 thou/uL (130-400); Platelet Morphology Comment Appears Adequate; RBC Distribution Width 14.5 % (11.5-14.5); RBC Morphology Normal; Red Blood Cell (RBC) Count 3.09 mill/uL (4.70-6.10); White Blood Cell (WBC) Count 6.4 thou/uL (4.8-10.8)
[2019-10-29] MEDS ORDERED: Sodium Phosphate 30 MMOL in Sodium Chloride 0.9% 250 ML 250 ML IVPB SCH (06:00)
--- NOTE | 2019-10-29 07:34 | PRG ---
DATE OF SERVICE: 10/29/2019 I saw Aj Kim in the ICU this morning. Dr. Blanca has been caring for him and I am covering for the weekend. There was a call yesterday afternoon about some pupillary asymmetry and slightly decreased neurological function. However, this morning, things seem to have improved. Nursing reports that he may be intermittently following commands on the right side, but he is certainly able to localize and withdraw and he is even withdrawing the left leg per report. Among the electronically recorded vital signs, bladder temperatures have been high, but they are coming down. A look at the blood pressures reveal they have been in the 120s to 130s. On examination, Mr. Kim is indeed quite purposeful with the right side. He is bringing his leg up to make himself more comfortable. He is moving his arm purposefully. I asked him to wiggle his toes and he moves the entire leg in a rhythmic fashion which makes me think that he is attempting to follow commands. He squeezes the right hand intermittently to command, but he certainly does localize. The right scalp flap is full, but soft. The left leg withdraws to stimulus. The left arm moves less than the left leg. This morning his hemoglobin is 8.4. His sodium this morning is 139. Mr. Kim seems to improve neurologically from yesterday. My one major concern is the amount of fluid he is getting. He is getting 43 mL an hour in electrolyte replacement. Currently, he is getting 150 mL an hour of saline as maintenance fluid. He is getting 20 mL an hour of propofol. He is getting a small amount of fentanyl and he is getting 55 mL an hour of tube feeds. This adds up to over 268 mL of fluid per hour. I do not recommend this in head injury. We can consolidate these IV fluid administration and total up our total fluid in and keep that as minimal as possible (assuming he is adequately resuscitated from the other injuries), then his brain will behave better. I will follow up tomorrow. Job ID: [id number]
[2019-10-29] MEDS: Bacitracin 1 PK TOP SCH ×3 (08:18→20:44)
[2019-10-29] MEDS: Ascorbic Acid 500 mg Chewable Tablet PO SCH ×2 (08:18→16:05)
[2019-10-29] MEDS: Ferrous Sulfate 325 MG TAB PO SCH ×2 (08:18→16:05)
[2019-10-29] MEDS: Famotidine/PF 20 mg/2ml Vial SLOW IVP SCH ×2 (08:18→20:44)
[2019-10-29] MEDS: Chlorhexidine Gluconate 15 ML UDCUP SSP SCH ×2 (08:19→20:45)
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
--- NOTE | 2019-10-29 15:46 | ULT ---
EXAM: Bilateral lower extremity venous Doppler US HISTORY: bilateral lower extremity edema and pain FINDINGS: Grayscale, color-flow, Doppler evaluation, spectral analysis of the bilateral lower extremities venou s structures is performed with 2-D imaging. The bilateral common femoral, superficial femoral, popliteal, posterior tibial, proximal greater saphenous and profunda femoral veins are imaged. There is normal luminal compressibility, flow, and augmentation in the visualized deep venous structu res of the bilateral lower extremities. IMPRESSION: No evidence of a deep vein thrombosis in either lower extremity.
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
[2019-10-29] MEDS: fentaNYL Citrate/PF 2,000 MCG in Sodium Chloride 0.9% 60 ML IV SCH (19:39)
[2019-10-29] MEDS: cefTRIAXone\\ROCEPHIN 2 GM in Sodium Chloride 0.9% 100 ML IVPB SCH (20:44)
[2019-10-29] MEDS: clonazePAM 0.5 MG TAB PO SCH (20:44)
[2019-10-29] MEDS: Senokot S 8.6-50 MG TAB PO SCH (20:44)
--- NOTE | 2019-10-30 00:03 | PRG ---
DATE OF SERVICE: 10/28/2019 SUBJECTIVE: He is 24 hours status post open reduction, internal fixation of mid symphyseal fracture of the mandible and right subcondylar fracture of the mandible, application of maxillomandibular fixation. The patient is stable in the critical care floor unit. He is now postop day #5 from status post right hemicraniectomy and postop day #1 from open reduction, internal fixation of facial fractures. The patient continues to be febrile. Blood, urine, respiratory, respiratory cultures have been taken. The patient is currently sedated and resting comfortably in bed. Focused exam maxillofacial, moderate facial edema as expected postoperatively. Right hemicraniectomy dressing applied. Site is clean, dry, and intact. approach, retromandibular incision dressing is clean, dry, and intact. Unable to assess cranial nerve 7 function due to patient being under sedation. Intraoral exam reveals incisions are hemostatic. Sutures are intact. Occlusion is stable. The patient is currently in maxillomandibular fixation consistent with intraoperative findings. IMAGING: Postoperative i-CAT reveals excellent anatomic reduction of the right subcondylar fracture in the mid fracture. Decrease of retroorbital hematoma as well was noted. IMPRESSION: Postoperative #1, progressing well. PLAN: We will continue to follow patient while in-house. We will plan to remove left periorbital complex sutures Thursday of next week. Dressing for the right retromandibular incision can be removed with application of bacitracin t.i.d. as similar for other laceration of the face. The patient will require maxillomandibular fixation for 6 weeks. We will continue to monitor and assess for neurological improvement to be able to evaluate cranial nerve 7 function on the right. Contact oral maxillofacial surgery with questions or concerns. Job ID: [id number]
[2019-10-30] MEDS: Acetaminophen 650 MG/20.3 ML UDCUP PO SCH ×6 (01:10→20:26)
[2019-10-30] MEDS: Sodium Chloride 0.9% 1,000 ML IV SCH ×5 (04:05→15:50)
[2019-10-30] MEDS: Sodium Chloride 1 GM TAB PER TUBE SCH (04:07)
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
[2019-10-30] MEDS: Ferrous Sulfate 325 MG TAB PO SCH ×2 (07:47→16:52)
[2019-10-30] MEDS: Ascorbic Acid 500 mg Chewable Tablet PO SCH ×2 (07:47→16:52)
[2019-10-30 08:34] LABS: #Basophils 0.1 thou/uL (0.0-0.2); #Lymphocytes 1.5 thou/uL (1.20-3.40); #Monocytes 0.4 thou/uL (0.11-0.59); #Neutrophils 5.1 thou/uL (1.40-6.50); %Basophils 0.9 % (0.0-1.0); %Eosinophils 0.4 % (0.0-10.0); %Lymphocytes 20.6 % (21.0-51.0); %Monocytes 5.7 % (0.0-10.0); %Neutrophils 72.3 % (42.0-75.0); Mean Corpuscular HGB CONC 32.7 g/dL (32.0-36.0); Mean Corpuscular Volume 85.7 fL (78.0-98.0); Platelet Count 261 thou/uL (130-400); RBC Distribution Width 14.6 % (11.5-14.5); Red Blood Cell (RBC) Count 3.19 mill/uL (4.70-6.10); White Blood Cell (WBC) Count 7.1 thou/uL (4.8-10.8)
[2019-10-30 09:07] LABS: Anion Gap 12 mmol/L (10-20); BUN (Urea Nitrogen) 15 mg/dL (8.9-20.6); Calc. Creatinine Clearance 0 mL/min (70-130); Calcium 7.9 mg/dL (7.8-10.44); Carbon Dioxide 24 mmol/L (22-29); Chloride 110 mmol/L (98-107); Estimated GFR-MDRD Greater than 90; Glucose 118 mg/dL (70-105); Potassium 3.8 mmol/L (3.5-5.1); Sodium 142 mmol/L (136-145)
[2019-10-30] MEDS: Bacitracin 1 PK TOP SCH ×3 (10:28→20:27)
[2019-10-30] MEDS: Chlorhexidine Gluconate 15 ML UDCUP SSP SCH (10:35)
[2019-10-30] MEDS: Senokot S 8.6-50 MG TAB PO SCH ×2 (10:35→20:27)
[2019-10-30] MEDS: clonazePAM 0.5 MG TAB PO SCH ×2 (10:36→20:27)
[2019-10-30] MEDS: Polyethylene Glycol 3350 17 GM Packet PER TUBE SCH (10:36)
[2019-10-30] MEDS: Famotidine/PF 20 mg/2ml Vial SLOW IVP SCH ×2 (10:36→20:27)
[2019-10-30] MEDS ORDERED: Sodium Chloride 1 GM TAB PER TUBE SCH (15:30)
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
[2019-10-30] MEDS: fentaNYL Citrate/PF 2,000 MCG in Sodium Chloride 0.9% 60 ML IV SCH (19:05)
[2019-10-30] MEDS: cefTRIAXone\\ROCEPHIN 2 GM in Sodium Chloride 0.9% 100 ML IVPB SCH (20:27)
[2019-10-31] MEDS: Chlorhexidine Gluconate 15 ML UDCUP SSP SCH ×3 (00:29→20:20)
[2019-10-31] MEDS: Acetaminophen 650 MG/20.3 ML UDCUP PO SCH ×7 (01:52→23:52)
[2019-10-31] MEDS: Sodium Chloride 0.9% 1,000 ML IV SCH ×2 (01:56→11:56)
[2019-10-31 03:39] LABS: #Eosinphils 0.1 thou/uL (0.0-0.7); #Lymphocytes 1.5 thou/uL (1.20-3.40); #Monocytes 1.3 thou/uL (0.11-0.59); #Neutrophils 7.8 thou/uL (1.40-6.50); %Basophils 0.1 % (0.0-1.0); %Eosinophils 0.5 % (0.0-10.0); %Lymphocytes 14.3 % (21.0-51.0); %Monocytes 12.1 % (0.0-10.0); Hemoglobin 9.7 g/dL (14.0-18.0); Mean Corpuscular HGB CONC 32.3 g/dL (32.0-36.0); Mean Corpuscular Volume 86.7 fL (78.0-98.0); Mean Platelet Volume 9.1 fL (7.4-10.4); Platelet Count 288 thou/uL (130-400); RBC Distribution Width 14.5 % (11.5-14.5); Red Blood Cell (RBC) Count 3.45 mill/uL (4.70-6.10); White Blood Cell (WBC) Count 10.7 thou/uL (4.8-10.8)
[2019-10-31 04:07] LABS: Anion Gap 16 mmol/L (10-20); BUN (Urea Nitrogen) 14 mg/dL (8.9-20.6); CK (CPK) 1224 U/L (30-200); Calc. Creatinine Clearance 0 mL/min (70-130); Calcium 8.3 mg/dL (7.8-10.44); Carbon Dioxide 22 mmol/L (22-29); Chloride 109 mmol/L (98-107); Estimated GFR-MDRD Greater than 90; Glucose 136 mg/dL (70-105); Magnesium 1.9 mg/dL (1.6-2.6); Phosphorus 3.8 mg/dL (2.3-4.7); Potassium 3.9 mmol/L (3.5-5.1); Sodium 143 mmol/L (136-145)
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
[2019-10-31] MEDS: Ascorbic Acid 500 mg Chewable Tablet PO SCH ×2 (09:00→16:34)
[2019-10-31] MEDS: Bacitracin 1 PK TOP SCH ×3 (09:01→20:20)
[2019-10-31] MEDS: clonazePAM 0.5 MG TAB PO SCH ×2 (09:01→20:21)
[2019-10-31] MEDS: Ferrous Sulfate 325 MG TAB PO SCH ×2 (09:01→16:34)
[2019-10-31] MEDS: Famotidine/PF 20 mg/2ml Vial SLOW IVP SCH ×2 (09:01→20:21)
[2019-10-31] MEDS: Polyethylene Glycol 3350 17 GM Packet PER TUBE SCH (09:02)
[2019-10-31] MEDS: Senokot S 8.6-50 MG TAB PO SCH ×2 (09:03→20:21)
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
[2019-10-31] MEDS: fentaNYL Citrate/PF 2,000 MCG in Sodium Chloride 0.9% 60 ML IV SCH (19:50)
[2019-10-31] MEDS: cefTRIAXone\\ROCEPHIN 2 GM in Sodium Chloride 0.9% 100 ML IVPB SCH (20:20)
[2019-11-01] MEDS: Acetaminophen 650 MG/20.3 ML UDCUP PO SCH ×6 (04:26→23:53)
[2019-11-01] MEDS: Ascorbic Acid 500 mg Chewable Tablet PO SCH ×2 (07:33→17:52)
[2019-11-01] MEDS: Ferrous Sulfate 325 MG TAB PO SCH ×2 (07:34→17:52)
[2019-11-01] MEDS: Bisacodyl 10 MG SUPP PR SCH (07:35)
[2019-11-01] MEDS: Chlorhexidine Gluconate 15 ML UDCUP SSP SCH ×2 (08:29→23:52)
[2019-11-01] MEDS: Senokot S 8.6-50 MG TAB PO SCH ×2 (08:29→21:24)
[2019-11-01] MEDS: Polyethylene Glycol 3350 17 GM Packet PER TUBE SCH (08:29)
[2019-11-01] MEDS: Bacitracin 1 PK TOP SCH ×3 (08:29→21:19)
[2019-11-01] MEDS: clonazePAM 0.5 MG TAB PO SCH ×2 (08:29→21:19)
[2019-11-01] MEDS: Famotidine/PF 20 mg/2ml Vial SLOW IVP SCH ×2 (08:29→21:20)
[2019-11-01] MEDS ORDERED: VANCOMYCIN IVPB PRN (09:13)
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
[2019-11-01] MEDS: Vancomycin 1.5 GRAM/300 ML BAG 1.5 GM in Premix Bag 1 BAG IVPB SCH ×2 (10:42→17:52)
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
--- NOTE | 2019-11-01 13:49 | ULT ---
RIGHT LOWER EXTREMITY VENOUS DUPLEX EXAM: Date: 11/01/2019 HISTORY: Right leg swelling and redness. FINDINGS: Real-time color Doppler evaluation of the right lower extremity was performed from groin to calf. Thi s includes evaluation of the common femoral, superficial and profunda femoral, saphenous, popliteal, and posterior tibial veins. This shows patent deep venous system. There is normal compressibility and augmentation. There is no evidence of deep venous thrombosis. IMPRESSION: No evidence of deep venous thrombosis of the right lower extremity. POS: KAMARI
[2019-11-01] MEDS: oxyCODONE 5 MG TAB PO PRN ×2 (14:32→22:05)
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
[2019-11-01] MEDS: Saccharomyces boulardii 250 MG CAP PO SCH (21:19)
[2019-11-01] MEDS: Amantadine HCl 100 mg Capsule PO SCH (21:22)
[2019-11-01] MEDS: cefTRIAXone\\ROCEPHIN 2 GM in Sodium Chloride 0.9% 100 ML IVPB SCH (21:32)
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
[2019-11-01] MEDS: diphenhydrAMINE 50 MG/ML VIAL IVP PRN (23:53)
[2019-11-02] MEDS: Vancomycin 1.5 GRAM/300 ML BAG 1.5 GM in Premix Bag 1 BAG IVPB SCH (03:17)
[2019-11-02] MEDS: oxyCODONE 5 MG TAB PO PRN ×3 (03:59→20:33)
[2019-11-02] MEDS: Acetaminophen 650 MG/20.3 ML UDCUP PO SCH ×3 (05:16→17:42)
[2019-11-02 05:33] LABS: Band 5 % (5-11); Hemoglobin 8.6 g/dL (14.0-18.0); Lymphocytes 21 % (21-51); MDiff Complete? YES; Mean Corpuscular HGB CONC 32.3 g/dL (32.0-36.0); Mean Corpuscular Hemoglobin 27.5 pg (27.0-31.0); Mean Platelet Volume 8.6 fL (7.4-10.4); Metamyelocyte 1 % (0-0); Monocytes 4 % (0-10); Neutrophil 69 % (42-75); Platelet Count 401 thou/uL (130-400); Platelet Morphology Comment Appears Increased; RBC Distribution Width 14.5 % (11.5-14.5); Red Blood Cell (RBC) Count 3.14 mill/uL (4.70-6.10); White Blood Cell (WBC) Count 13.2 thou/uL (4.8-10.8)
[2019-11-02 05:42] LABS: Anion Gap 15 mmol/L (10-20); BUN (Urea Nitrogen) 15 mg/dL (8.9-20.6); Calc. Creatinine Clearance 189 mL/min (70-130); Carbon Dioxide 21 mmol/L (22-29); Chloride 107 mmol/L (98-107); Estimated GFR-MDRD Greater than 90; Glucose 115 mg/dL (70-105); Magnesium 1.9 mg/dL (1.6-2.6); Phosphorus 3.1 mg/dL (2.3-4.7); Potassium 3.8 mmol/L (3.5-5.1); Sodium 139 mmol/L (136-145)
[2019-11-02] MEDS: Senokot S 8.6-50 MG TAB PO SCH ×2 (07:02→20:34)
[2019-11-02] MEDS: Bisacodyl 10 MG SUPP PR SCH (07:02)
[2019-11-02] MEDS: Famotidine 20 MG TAB PER TUBE SCH ×2 (08:15→20:29)
[2019-11-02] MEDS: Bacitracin 1 PK TOP SCH ×3 (08:15→20:34)
[2019-11-02] MEDS: clonazePAM 0.5 MG TAB PO SCH ×2 (08:15→20:29)
[2019-11-02] MEDS: Ascorbic Acid 500 mg Chewable Tablet PO SCH ×2 (08:15→17:42)
[2019-11-02] MEDS: Ferrous Sulfate 325 MG TAB PO SCH ×2 (08:15→17:42)
[2019-11-02] MEDS: Saccharomyces boulardii 250 MG CAP PO SCH ×2 (08:15→20:29)
[2019-11-02] MEDS: Polyethylene Glycol 3350 17 GM Packet PER TUBE SCH (08:15)
[2019-11-02] MEDS: Amantadine HCl 100 mg Capsule PO SCH ×2 (08:16→20:29)
[2019-11-02] MEDS: cefTRIAXone\\ROCEPHIN 2 GM in Sodium Chloride 0.9% 100 ML IVPB SCH ×2 (08:16→20:36)
[2019-11-02] MEDS: Chlorhexidine Gluconate 15 ML UDCUP SSP SCH ×2 (08:17→20:29)
[2019-11-02] MEDS ORDERED: MAGNESIUM SULFATE IVPB SCH (09:00)
[2019-11-02] MEDS ORDERED: POTASSIUM PHOSPHATE IVPB SCH (09:00)
[2019-11-02] MEDS ORDERED: [UNRECOGNIZED DRUG - OTHER] IVPB SCH (09:00)
[2019-11-02 09:36] LABS: Vancomycin, Trough 12.1 ug/mL
[2019-11-02] MEDS: Vancomycin HCl 1.75 GM in Sodium Chloride 0.9% 500 ML IVPB SCH ×2 (09:56→17:42)
[2019-11-02] MEDS ORDERED: Furosemide 20 MG/2 ML VIAL SLOW IVP SCH (10:15)
--- NOTE | 2019-11-02 13:13 | EKG ---
Test Reason : STAT Blood Pressure : / mmHG Vent. Rate : 125 BPM Atrial Rate : 125 BPM P-R Int : 126 ms QRS Dur : 096 ms QT Int : 326 ms P-R-T Axes : 081 -80 083 degrees QTc Int : 470 ms Sinus tachycardia Pulmonary disease pattern Incomplete right bundle branch block Left anterior fascicular block Septal infarct , age undetermined Abnormal ECG No previous ECGs available Confirmed by JOAO ZAVALETA, DR. Ferguson ([id number]) on 11/02/2019 1:12:52 PM Referred By: SURYA Confirmed By:DR. Phyllis SHEPHERD MD
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
[2019-11-02] MEDS: diphenhydrAMINE 50 MG/ML VIAL IVP PRN (15:09)
[2019-11-02] MEDS: Ibuprofen 600 MG TAB PO PRN (15:09)
[2019-11-02] MEDS: Furosemide 20 MG/2 ML VIAL SLOW IVP SCH (20:29)
[2019-11-03] MEDS: Acetaminophen 650 MG/20.3 ML UDCUP PO SCH ×5 (00:02→23:26)
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
[2019-11-03] MEDS: Vancomycin HCl 1.75 GM in Sodium Chloride 0.9% 500 ML IVPB SCH ×2 (02:51→09:56)
[2019-11-03 05:46] LABS: #Eosinphils 0.1 thou/uL (0.0-0.7); #Lymphocytes 1.6 thou/uL (1.20-3.40); #Monocytes 1.2 thou/uL (0.11-0.59); #Neutrophils 10.3 thou/uL (1.40-6.50); %Basophils 0.3 % (0.0-1.0); %Eosinophils 0.5 % (0.0-10.0); %Lymphocytes 12.4 % (21.0-51.0); %Monocytes 8.8 % (0.0-10.0); %Neutrophils 77.9 % (42.0-75.0); Mean Corpuscular HGB CONC 30.7 g/dL (32.0-36.0); Mean Corpuscular Hemoglobin 26.3 pg (27.0-31.0); Mean Corpuscular Volume 85.5 fL (78.0-98.0); Mean Platelet Volume 8.8 fL (7.4-10.4); Platelet Count 437 thou/uL (130-400); RBC Distribution Width 14.5 % (11.5-14.5); Red Blood Cell (RBC) Count 3.43 mill/uL (4.70-6.10); White Blood Cell (WBC) Count 13.2 thou/uL (4.8-10.8)
[2019-11-03 06:00] LABS: Anion Gap 11 mmol/L (10-20); BUN (Urea Nitrogen) 17 mg/dL (8.9-20.6); CK (CPK) 509 U/L (30-200); Calc. Creatinine Clearance 168 mL/min (70-130); Calcium 8.5 mg/dL (7.8-10.44); Carbon Dioxide 25 mmol/L (22-29); Chloride 106 mmol/L (98-107); Estimated GFR-MDRD Greater than 90; Glucose 132 mg/dL (70-105); Magnesium 2.1 mg/dL (1.6-2.6); Phosphorus 3.8 mg/dL (2.3-4.7); Potassium 3.9 mmol/L (3.5-5.1); Sodium 138 mmol/L (136-145)
[2019-11-03] MEDS: Ibuprofen 600 MG TAB PO PRN (06:15)
[2019-11-03] MEDS: Furosemide 20 MG/2 ML VIAL SLOW IVP SCH (06:46)
[2019-11-03] MEDS: Chlorhexidine Gluconate 15 ML UDCUP SSP SCH ×2 (08:17→21:04)
[2019-11-03] MEDS: Ascorbic Acid 500 mg Chewable Tablet PO SCH ×2 (08:17→17:01)
[2019-11-03] MEDS: Amantadine HCl 100 mg Capsule PO SCH ×2 (08:17→21:04)
[2019-11-03] MEDS: Saccharomyces boulardii 250 MG CAP PO SCH ×2 (08:18→21:04)
[2019-11-03] MEDS: Bacitracin 1 PK TOP SCH ×3 (08:18→21:04)
[2019-11-03] MEDS: clonazePAM 0.5 MG TAB PO SCH (08:18)
[2019-11-03] MEDS: Senokot S 8.6-50 MG TAB PO SCH (08:18)
[2019-11-03] MEDS: Famotidine 20 MG TAB PER TUBE SCH ×2 (08:18→21:04)
[2019-11-03] MEDS: Ferrous Sulfate 325 MG TAB PO SCH ×2 (08:19→17:01)
[2019-11-03] MEDS: cefTRIAXone\\ROCEPHIN 2 GM in Sodium Chloride 0.9% 100 ML IVPB SCH ×2 (08:19→21:04)
[2019-11-03] MEDS: Bisacodyl 10 MG SUPP PR SCH (08:19)
[2019-11-03] MEDS: Polyethylene Glycol 3350 17 GM Packet PER TUBE SCH (08:20)
[2019-11-03] MEDS ORDERED: Enoxaparin Sodium 30 MG/0.3 ML SYRINGE SC SCH (09:00)
[2019-11-03 09:11] LABS: Vancomycin, Trough 21.9 ug/mL
[2019-11-03] MEDS ORDERED: Senokot S 8.6-50 MG TAB PO PRN (09:15)
[2019-11-03] MEDS ORDERED: Melatonin 3 MG TAB PO PRN (10:54)
[2019-11-03] MEDS: Vancomycin 1.5 GRAM/300 ML BAG 1.5 GM in Premix Bag 1 BAG IVPB SCH (17:29)
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
[2019-11-03] MEDS ORDERED: Aluminum & Magnesium Hydroxide 60 ML, Lidocaine 2% Viscous Solution 30 ML, diphenhydrAM... SSP PRN (21:09)
[2019-11-03] MEDS ORDERED: Aluminum & Magnesium Hydroxide 60 ML, Lidocaine 2% Viscous Solution 30 ML, diphenhydrAM... SSP SCH (21:15)
--- NOTE | 2019-11-03 23:41 | EKG ---
Test Reason : STAT Blood Pressure : / mmHG Vent. Rate : 090 BPM Atrial Rate : 090 BPM P-R Int : 126 ms QRS Dur : 096 ms QT Int : 362 ms P-R-T Axes : 018 -59 048 degrees QTc Int : 442 ms Normal sinus rhythm Left anterior fascicular block Abnormal ECG Confirmed by Mars DE LUNA ([id number]) on 11/03/2019 11:40:49 PM Referred By: AMBER Confirmed By:Mars DE LUNA
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
[2019-11-04] MEDS: Vancomycin 1.5 GRAM/300 ML BAG 1.5 GM in Premix Bag 1 BAG IVPB SCH ×3 (01:41→18:22)
[2019-11-04] MEDS: diphenhydrAMINE 50 MG/ML VIAL IVP PRN (02:33)
[2019-11-04 04:18] LABS: Anion Gap 16 mmol/L (10-20); BUN (Urea Nitrogen) 16 mg/dL (8.9-20.6); CK (CPK) 239 U/L (30-200); Calc. Creatinine Clearance 164 mL/min (70-130); Calcium 8.4 mg/dL (7.8-10.44); Carbon Dioxide 22 mmol/L (22-29); Chloride 106 mmol/L (98-107); Estimated GFR-MDRD Greater than 90; Glucose 105 mg/dL (70-105); Magnesium 2.1 mg/dL (1.6-2.6); Phosphorus 4.1 mg/dL (2.3-4.7); Potassium 4.5 mmol/L (3.5-5.1); Sodium 139 mmol/L (136-145)
[2019-11-04] MEDS: Acetaminophen 650 MG/20.3 ML UDCUP PO SCH ×3 (05:20→18:22)
[2019-11-04 05:25] LABS: Band 3 % (5-11); Eosinophils 2 % (0-10); Hemoglobin 8.5 g/dL (14.0-18.0); Lymphocytes 21 % (21-51); MDiff Complete? YES; Mean Corpuscular HGB CONC 32.2 g/dL (32.0-36.0); Mean Corpuscular Hemoglobin 27.1 pg (27.0-31.0); Mean Corpuscular Volume 84.3 fL (78.0-98.0); Mean Platelet Volume 8.9 fL (7.4-10.4); Metamyelocyte 1 % (0-0); Monocytes 6 % (0-10); Myelocyte 3 % (0-0); Neutrophil 64 % (42-75); Platelet Count 529 thou/uL (130-400); RBC Distribution Width 14.8 % (11.5-14.5); Red Blood Cell (RBC) Count 3.13 mill/uL (4.70-6.10); White Blood Cell (WBC) Count 14.2 thou/uL (4.8-10.8)
--- NOTE | 2019-11-04 06:54 | PRG ---
DATE OF SERVICE: 11/03/2019 HISTORY OF PRESENT ILLNESS: He is 6 days status post open reduction and internal fixation of mid symphyseal fracture of mandible and right subcondylar fracture with application of maxillomandibular fixation. The patient is resting comfortably in bed, following commands and currently with trach on vent support. The patient's pain has been well controlled. PHYSICAL EXAMINATION: Moderate facial swelling continuing to resolve. Left periorbital complex laceration. Sutures are intact and ready for removal. Right retromandibular incision site clean, dry, and intact. Mild edema and induration of the right face along the parotid region. Intraoral exam reveals drainage bilaterally of Stensen duct. Application of MMF is stable and secured. Hygiene is good, 3 mm soft tissue dehiscence of mandibular vestibular incision. No drainage or purulence. IMPRESSION: Progressing well, status post open reduction and internal fixation of mandibular fractures. PLAN: Continue IV antibiotics as indicated. Continue Peridex oral rinse b.i.d. We will continue with application of maxillomandibular fixation for a total of 6 weeks post reduction. Sutures along the left perioral complex laceration removed. We recommended and instructed parents on wound care. We will continue to keep an eye on mandibular vestibular soft tissue dehiscence with daily Peridex oral hygiene rinses. We will continue to follow slight or moderate right facial edema that appears to be resolving to rule out no underlying seroma. We will plan to take out sutures along right retromandibular approach in 4 to 5 days. We will continue to follow while in-house. Job ID: [id number]
[2019-11-04] MEDS ORDERED: PROPOFOL 20 ML ONE ×2 (08:41→17:38)
[2019-11-04] MEDS ORDERED: Propofol 1,000 MG/100 ML VIAL IV PRN (08:59)
[2019-11-04] MEDS ORDERED: Aluminum & Magnesium Hydroxide 60 ML, Lidocaine 2% Viscous Solution 30 ML, diphenhydrAM... SSP SCH (09:00)
[2019-11-04] MEDS: cefTRIAXone\\ROCEPHIN 2 GM in Sodium Chloride 0.9% 100 ML IVPB SCH ×2 (09:20→21:35)
[2019-11-04] MEDS: Enoxaparin Sodium 40 MG/0.4 ML SYRINGE SC SCH (09:20)
[2019-11-04] MEDS: Amantadine HCl 100 mg Capsule PO SCH ×2 (09:21→21:34)
[2019-11-04] MEDS: Famotidine 20 MG TAB PER TUBE SCH ×2 (09:21→21:35)
[2019-11-04] MEDS: Ascorbic Acid 500 mg Chewable Tablet PO SCH ×2 (09:21→16:58)
[2019-11-04] MEDS: Saccharomyces boulardii 250 MG CAP PO SCH ×2 (09:21→21:35)
[2019-11-04] MEDS: Ferrous Sulfate 325 MG TAB PO SCH ×2 (09:21→16:58)
--- NOTE | 2019-11-04 09:24 | CT ---
CT BRAIN NONCONTRAST: DATE: 11/04/2019 HISTORY: 24-year-old male follow-up intracranial hemorrhage. Dr. Mcbride discussed the new findings by telephone with CCU nurse Hector Ruiz at 9:13 AM 11/04/2019. Dr. Mcbride sent neurosurgery PA Ira Barrios a [employer] text message regarding the new left subdu ral fluid collection and new mass effect at 9:22 AM 11/04/2019. COMPARISON: 11/01/2019 FINDINGS: Again noted is the right frontotemporal craniectomy. There is extracranial herniation of right fronta l lobe and some temporal lobe laterally through this craniectomy defect, laterally displacing the synthetic flap, as previously demonstrated. The layer of extra-axial hematoma just deep to the flap h as become less dense and slightly decreased in volume. There is a new left frontotemporal subdural fluid collection which has density that is intermediate b etween that of CSF and brain parenchyma. At the posterior dependent portion of this subdural fluid collection, there is a small amount of dense hemorrhage. There is a new finding of 14 mm of [id number] midline shift of the septum pellucidum. There is a new finding of distortion of the bilateral cerebral peduncles of the midbrain, with partia l effacement of the perimesencephalic cistern, suggestive of mild left uncal herniation. There is no cerebellar tonsillar herniation. The body and trigone of the left lateral ventricle, and the occip ital horn, are almost completely effaced due to the mass effect. Right lateral ventricle is distorted. Third ventricle is narrowed. Fourth ventricle is normal in size. The right upper parietal subdural hematoma has not changed in volume, but it has become lower in dens ity. The thin layer of subdural hematoma along the posterior interhemispheric falx has become less dense. The edema involving the bilateral posterior parietal and occipital lobes has not significantly change d, but the associated intra-axial hemorrhages have become less dense. Hemorrhagic contusion with edema at the anterior inferior aspect of right frontal lobe again noted. N ear-total opacification of frontal, sphenoid, and ethmoid sinuses, again noted. IMPRESSION: 1) new left supratentorial subdural fluid collection, which appears to be subdural hematoma/hygroma. 2) new significant mass effect, with 14 mm subfalcine herniation and uncal herniation.
[2019-11-04] MEDS: Bisacodyl 10 MG SUPP PR SCH (09:34)
[2019-11-04] MEDS: Polyethylene Glycol 3350 17 GM Packet PER TUBE SCH (09:34)
[2019-11-04] MEDS: Chlorhexidine Gluconate 15 ML UDCUP SSP SCH ×2 (09:50→21:34)
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
[2019-11-04] MEDS: Aluminum & Magnesium Hydroxide 60 ML, Lidocaine 2% Viscous Solution 30 ML, diphenhydrAM... SSP SCH ×2 (10:45→21:37)
[2019-11-04] MEDS ORDERED: Fentanyl 100 MCG/2 ML VIAL ONE (13:43)
[2019-11-04] MEDS ORDERED: Sterile Water 10 ML ONE (13:48)
[2019-11-04] MEDS ORDERED: Midazolam HCl 2 mg/2 ml Vial ONE (14:03)
[2019-11-04] MEDS ORDERED: Midazolam HCl 2 mg/2 ml Vial SLOW IVP SCH ×3 (15:40→19:45)
[2019-11-04] MEDS ORDERED: Fentanyl 100 MCG/2 ML VIAL SLOW IVP SCH ×2 (15:40→19:45)
[2019-11-04] MEDS: Fentanyl 100 MCG/2 ML VIAL SLOW IVP PRN ×2 (16:56→17:30)
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
[2019-11-04 17:32] LABS: Vancomycin, Trough 14.3 ug/mL
[2019-11-04] MEDS ORDERED: PROPOFOL 200 MG/20 ML VIAL IV PRN (17:41)
--- NOTE | 2019-11-04 18:38 | CT ---
CT HEAD WITHOUT CONTRAST: 11/04/19 INDICATIONS: Post left EVD placement. COMPARISON: Comparison made to the CT head earlier today at 9 a.m. FINDINGS: A ventricular shunt catheter has been placed to the left frontal lobe. The catheter crosses the falx in the midline and tip overlies the anterior aspect of the corpus callosum to the right of midline. T he tip does not enter the ventricular system on these images. There has been correction of the midline shift noted today. The septum pellucidum resides within the midline on the current study. The herniation of the right frontal lobe through the craniectomy defect is again noted although sligh tly less pronounced with the change in mass effect. The subdural collection along the left convexity has been removed. There is now pneumocephalus along the anterior left subdural space. Parenchymal vicente ency is consistent with contusion in the right frontal lobe is unchanged. Subdural hematoma along the right parietal lobe and parenchymal lucency/contusion in the right parieto-occipital region remains stable. Subdural hygromas along the anterior falx again noted. IMPRESSION: Ventricular drainage catheter enters the left frontal lobe and crosses the midline. The tip does not reside within the ventricular system on this exam. There has been evacuation of the left subdural fluid collection and correction of the midline shift s herve earlier exam. Findings were relayed to Hector, patient's nurse in the CCU. Ira Barrios and/or neurosurgery will be notified of this finding. Code CR POS: RONI
[2019-11-04] MEDS ORDERED: Propofol BOLUS 1,000 MG/100 ML VIAL IV PRN (18:41)
[2019-11-04] MEDS: Propofol 1,000 MG/100 ML VIAL IV PRN (21:40)
[2019-11-05] MEDS: Acetaminophen 650 MG/20.3 ML UDCUP PO SCH ×4 (00:22→17:50)
[2019-11-05] MEDS: Vancomycin 1.5 GRAM/300 ML BAG 1.5 GM in Premix Bag 1 BAG IVPB SCH ×3 (01:56→17:50)
[2019-11-05] MEDS: Propofol 1,000 MG/100 ML VIAL IV PRN ×3 (04:25→20:59)
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
[2019-11-05 05:01] LABS: Anion Gap 18 mmol/L (10-20); BUN (Urea Nitrogen) 18 mg/dL (8.9-20.6); Calc. Creatinine Clearance 161 mL/min (70-130); Calcium 8.7 mg/dL (7.8-10.44); Carbon Dioxide 20 mmol/L (22-29); Chloride 103 mmol/L (98-107); Estimated GFR-MDRD Greater than 90; Glucose 120 mg/dL (70-105); Magnesium 2.1 mg/dL (1.6-2.6); Phosphorus 4.5 mg/dL (2.3-4.7); Potassium 4.7 mmol/L (3.5-5.1); Sodium 136 mmol/L (136-145)
[2019-11-05 05:40] LABS: Hemoglobin 9.1 g/dL (14.0-18.0); Mean Corpuscular HGB CONC 33.3 g/dL (32.0-36.0); Mean Corpuscular Hemoglobin 27.9 pg (27.0-31.0); Mean Corpuscular Volume 83.8 fL (78.0-98.0); Platelet Count 592 thou/uL (130-400); RBC Distribution Width 15.1 % (11.5-14.5); Red Blood Cell (RBC) Count 3.26 mill/uL (4.70-6.10); White Blood Cell (WBC) Count 15.8 thou/uL (4.8-10.8)
[2019-11-05 06:19] LABS: Band 9 % (5-11); Eosinophils 1 % (0-10); Lymphocytes 13 % (21-51); MDiff Complete? YES; Monocytes 11 % (0-10)
[2019-11-05] MEDS: Chlorhexidine Gluconate 15 ML UDCUP SSP SCH ×2 (08:37→20:19)
[2019-11-05] MEDS: Amantadine HCl 100 mg Capsule PO SCH ×2 (08:38→20:19)
[2019-11-05] MEDS: Saccharomyces boulardii 250 MG CAP PO SCH ×2 (08:38→20:19)
[2019-11-05] MEDS: Ferrous Sulfate 325 MG TAB PO SCH ×2 (08:38→17:50)
[2019-11-05] MEDS: Bisacodyl 10 MG SUPP PR SCH (08:39)
[2019-11-05] MEDS: Ascorbic Acid 500 mg Chewable Tablet PO SCH ×2 (08:39→17:50)
[2019-11-05] MEDS: Famotidine 20 MG TAB PER TUBE SCH ×2 (08:39→20:19)
[2019-11-05] MEDS: Enoxaparin Sodium 40 MG/0.4 ML SYRINGE SC SCH (08:39)
[2019-11-05] MEDS: Polyethylene Glycol 3350 17 GM Packet PER TUBE SCH (08:41)
[2019-11-05] MEDS: cefTRIAXone\\ROCEPHIN 2 GM in Sodium Chloride 0.9% 100 ML IVPB SCH (08:53)
[2019-11-05] MEDS: Aluminum & Magnesium Hydroxide 60 ML, Lidocaine 2% Viscous Solution 30 ML, diphenhydrAM... SSP SCH ×2 (08:53→20:19)
[2019-11-05] MEDS: Fentanyl 100 MCG/2 ML VIAL SLOW IVP PRN ×5 (09:39→20:56)
--- NOTE | 2019-11-05 10:35 | RAD ---
PORTABLE CHEST: Date: 11/05/2019 INDICATION: Question pneumonia. Shortness of breath. COMPARISON: 10/31/2019. FINDINGS: There is hazy infiltrate seen throughout the left lung involving both upper and lower lobes. Right lung appears clear. IMPRESSION: Hazy left lung infiltrates. POS: AGW
--- NOTE | 2019-11-05 13:15 | PRG ---
DATE OF SERVICE: 11/05/2019 Aj Kim is now 13 days out from hemicraniectomy. We placed an external ventricular drain yesterday, is open at zero. The output is 10 to 15 mL hourly. His flap remains full, but softer. He continues to follow commands. We will likely plan to send CSF in another day or 2. I do not suspect a meningitic or infectious meningitis here. He does have a pneumonia. Job ID: [id number]
[2019-11-05] MEDS: Cefepime 2 GM in Sodium Chloride 0.9% 100 ML IVPB SCH ×2 (14:04→21:43)
[2019-11-05 17:23] LABS: Vancomycin, Trough 14.7 ug/mL
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
[2019-11-06] MEDS: Vancomycin 1.5 GRAM/300 ML BAG 1.5 GM in Premix Bag 1 BAG IVPB SCH ×3 (02:00→17:31)
[2019-11-06 04:15] LABS: Anion Gap 14 mmol/L (10-20); BUN (Urea Nitrogen) 21 mg/dL (8.9-20.6); Calc. Creatinine Clearance 174 mL/min (70-130); Calcium 8.5 mg/dL (7.8-10.44); Carbon Dioxide 23 mmol/L (22-29); Chloride 103 mmol/L (98-107); Estimated GFR-MDRD Greater than 90; Glucose 124 mg/dL (70-105); Magnesium 2.1 mg/dL (1.6-2.6); Phosphorus 4.3 mg/dL (2.3-4.7); Potassium 4.3 mmol/L (3.5-5.1); Sodium 136 mmol/L (136-145)
[2019-11-06 04:22] LABS: Band 11 % (5-11); Eosinophils 2 % (0-10); Hemoglobin 8.6 g/dL (14.0-18.0); Lymphocytes 7 % (21-51); MDiff Complete? YES; Mean Corpuscular HGB CONC 32.3 g/dL (32.0-36.0); Mean Corpuscular Hemoglobin 27.4 pg (27.0-31.0); Mean Corpuscular Volume 84.9 fL (78.0-98.0); Mean Platelet Volume 8.9 fL (7.4-10.4); Monocytes 11 % (0-10); Platelet Count 590 thou/uL (130-400); Platelet Morphology Comment Appears Increased; RBC Distribution Width 14.8 % (11.5-14.5); Red Blood Cell (RBC) Count 3.13 mill/uL (4.70-6.10); White Blood Cell (WBC) Count 12.8 thou/uL (4.8-10.8)
[2019-11-06] MEDS: Cefepime 2 GM in Sodium Chloride 0.9% 100 ML IVPB SCH ×3 (06:19→21:52)
[2019-11-06] MEDS: Propofol 1,000 MG/100 ML VIAL IV PRN ×2 (06:19→18:01)
[2019-11-06] MEDS: Acetaminophen 650 MG/20.3 ML UDCUP PO SCH ×5 (06:20→23:57)
[2019-11-06] MEDS: Fentanyl 100 MCG/2 ML VIAL SLOW IVP PRN ×4 (06:48→12:12)
[2019-11-06] MEDS: Polyethylene Glycol 3350 17 GM Packet PER TUBE SCH (08:29)
[2019-11-06] MEDS: Ferrous Sulfate 325 MG TAB PO SCH ×2 (08:30→16:32)
[2019-11-06] MEDS: Famotidine 20 MG TAB PER TUBE SCH ×2 (08:30→20:25)
[2019-11-06] MEDS: Bisacodyl 10 MG SUPP PR SCH (08:30)
[2019-11-06] MEDS: Saccharomyces boulardii 250 MG CAP PO SCH ×2 (08:30→20:25)
[2019-11-06] MEDS: Ascorbic Acid 500 mg Chewable Tablet PO SCH ×2 (08:31→16:32)
[2019-11-06] MEDS: Amantadine HCl 100 mg Capsule PO SCH ×2 (08:35→20:25)
[2019-11-06] MEDS: Enoxaparin Sodium 40 MG/0.4 ML SYRINGE SC SCH (09:02)
[2019-11-06] MEDS: Chlorhexidine Gluconate 15 ML UDCUP SSP SCH ×2 (09:02→20:25)
[2019-11-06] MEDS: Aluminum & Magnesium Hydroxide 60 ML, Lidocaine 2% Viscous Solution 30 ML, diphenhydrAM... SSP SCH ×2 (09:04→20:27)
[2019-11-06] MEDS ORDERED: Polyethylene Glycol 3350 17 GM Packet PER TUBE PRN (17:57)
[2019-11-07] MEDS: Vancomycin 1.5 GRAM/300 ML BAG 1.5 GM in Premix Bag 1 BAG IVPB SCH ×3 (02:13→17:29)
[2019-11-07] MEDS: Cefepime 2 GM in Sodium Chloride 0.9% 100 ML IVPB SCH ×3 (05:46→21:07)
[2019-11-07] MEDS: Acetaminophen 650 MG/20.3 ML UDCUP PO SCH ×3 (05:47→17:28)
[2019-11-07] MEDS: oxyCODONE 5 MG TAB PO PRN (05:51)
[2019-11-07 06:25] LABS: Band 7 % (5-11); Hemoglobin 8.4 g/dL (14.0-18.0); Lymphocytes 14 % (21-51); MDiff Complete? YES; Mean Corpuscular HGB CONC 31.6 g/dL (32.0-36.0); Mean Corpuscular Hemoglobin 26.8 pg (27.0-31.0); Mean Platelet Volume 8.8 fL (7.4-10.4); Monocytes 13 % (0-10); Platelet Count 616 thou/uL (130-400); RBC Distribution Width 14.5 % (11.5-14.5); Red Blood Cell (RBC) Count 3.11 mill/uL (4.70-6.10); White Blood Cell (WBC) Count 12.6 thou/uL (4.8-10.8)
[2019-11-07 06:27] LABS: Anion Gap 11 mmol/L (10-20); BUN (Urea Nitrogen) 20 mg/dL (8.9-20.6); Calc. Creatinine Clearance 173 mL/min (70-130); Calcium 8.7 mg/dL (7.8-10.44); Carbon Dioxide 24 mmol/L (22-29); Chloride 105 mmol/L (98-107); Estimated GFR-MDRD Greater than 90; Glucose 127 mg/dL (70-105); Magnesium 1.9 mg/dL (1.6-2.6); Phosphorus 3.5 mg/dL (2.3-4.7); Potassium 4.4 mmol/L (3.5-5.1); Sodium 136 mmol/L (136-145)
[2019-11-07] MEDS: Fentanyl 100 MCG/2 ML VIAL SLOW IVP PRN ×7 (08:02→16:00)
[2019-11-07] MEDS: Famotidine 20 MG TAB PER TUBE SCH ×2 (08:17→20:19)
[2019-11-07] MEDS: Amantadine HCl 100 mg Capsule PO SCH ×2 (08:17→20:19)
[2019-11-07] MEDS: Ferrous Sulfate 325 MG TAB PO SCH ×2 (08:17→17:29)
[2019-11-07] MEDS: Ascorbic Acid 500 mg Chewable Tablet PO SCH ×2 (08:17→17:28)
[2019-11-07] MEDS: Saccharomyces boulardii 250 MG CAP PO SCH ×2 (08:17→20:19)
[2019-11-07] MEDS: Enoxaparin Sodium 40 MG/0.4 ML SYRINGE SC SCH (08:18)
[2019-11-07] MEDS ORDERED: Ascorbic Acid 500 mg Chewable Tablet PO SCH (08:30)
[2019-11-07] MEDS ORDERED: Ferrous Sulfate 325 MG TAB PO SCH (08:30)
[2019-11-07] MEDS ORDERED: Famotidine 20 MG TAB PER TUBE SCH (08:30)
[2019-11-07] MEDS ORDERED: Saccharomyces boulardii 250 MG CAP PO SCH (08:30)
[2019-11-07 09:25] LABS: Vancomycin, Trough 12.9 ug/mL
[2019-11-07] MEDS: Aluminum & Magnesium Hydroxide 60 ML, Lidocaine 2% Viscous Solution 30 ML, diphenhydrAM... SSP SCH ×2 (09:45→20:21)
[2019-11-07] MEDS: Chlorhexidine Gluconate 15 ML UDCUP SSP SCH ×2 (09:45→20:19)
[2019-11-07 09:52] LABS: CSF Source CSF; Clarity Hazy (Clear); Tube # CUP
[2019-11-07] MEDS ORDERED: Furosemide 20 MG/2 ML VIAL SLOW IVP SCH (10:30)
[2019-11-07] MEDS: oxyCODONE 5 MG TAB PO SCH ×2 (11:49→17:29)
--- NOTE | 2019-11-07 12:19 | CT ---
Exam: Head CT without contrast HISTORY: Check EVD placement. Follow-up exam. COMPARISON: 11/04/2019 FINDINGS: Hemorrhage: Stable intracranial hemorrhage. Small focus of hemorrhage along the falx is suspected. Th ere is subacute extra-axial hematoma along the left frontal temporal and parietal convexities. Brain parenchyma: Stable herniation of the brain via a right frontal craniectomy defect. Overlying fl ap is identified. There is evidence of edema and fluid involving the associated scalp. There is loss of cates-white matter differentiation involving both occipital lobes, similar to the previous exa m. Ventricular system: Interval repositioning/replacement of a ventriculoperitoneal shunt catheter. Curr ently, the catheter tip traverses the right frontal horn and terminates in the region of the medial limb of the right internal capsule. There is a small focus of iatrogenic hemorrhage along the course of the ventriculoperitoneal shunt catheter. Calvarium: Expected postoperative changes. There are fractures involving the right frontal sinus, rig ht mandible, left mandible, left pterygoid plates. Sinuses and mastoid air cells: Complete opacification of the sinuses and mastoid air cells. Bilateral mastoid air cell opacification may be secondary to intubation. However, mastoid fractures cannot be excluded. IMPRESSION: 1. Stable posttraumatic changes. 2. Interval repositioning of a ventriculoperitoneal shunt catheter as described above. Transcribed Date/Time: 11/07/2019 1:05 PM
[2019-11-07] MEDS: Midazolam HCl 2 mg/2 ml Vial ONE ×2 (13:20→14:42)
--- NOTE | 2019-11-07 14:05 | PRG ---
DATE OF SERVICE: 11/06/2019 Mr. Kim is 2 weeks into his hospitalization. He is currently at his best. He is alert. He is able to nod appropriately. He moves all extremities. His flap remains full, but soft. His drain output has been robust as expected. We will plan to send CSF tomorrow. His white count is decreased. He is now afebrile. He is being treated for pneumonia. Job ID: [id number]
[2019-11-07] MEDS: Ibuprofen 600 MG TAB PO SCH ×2 (14:16→21:07)
[2019-11-07] MEDS ORDERED: Lidocaine 1% (PF) 30 ML VIAL ONE ×2 (14:35→14:37)
--- NOTE | 2019-11-07 14:36 | CT ---
CT HEAD WITHOUT CONTRAST: INDICATION: Assess ventricular catheter. COMPARISON: Comparison is made to film earlier today at 12:08 p.m. FINDINGS: The ventricular shunt catheter entering via the left frontal lobe traversing the anterior horn of the right lateral ventricle and terminating in the right basal ganglia is again seen and does not appear significantly changed in position from the film earlier today. Lucency and blood along the course o f this stent is unchanged. The remainder of the CT appears stable. Herniation to the right craniectomy defect is stable. The l eft subdural collection is unchanged. The parenchymal lucencies in the frontal lobes and the right p arietooccipital region all remain stable. No interval change from the exam earlier today. IMPRESSION: No significant interval change. POS: AH
[2019-11-07] MEDS ORDERED: Vecuronium 10 MG VIAL ONE (14:50)
[2019-11-07] MEDS ORDERED: Vecuronium Bromide 20 MG VIAL IV SCH (15:00)
[2019-11-07] MEDS ORDERED: Lidocaine 1% w/Epinephrine 1:100K 20 ML VIAL ONE (15:00)
[2019-11-07] MEDS ORDERED: Sterile Water 20 ML ONE (15:30)
[2019-11-07] MEDS ORDERED: CEFAZOLIN 1 GM VIAL SLOW IVP SCH (15:45)
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
[2019-11-08] MEDS: oxyCODONE 5 MG TAB PO SCH ×5 (00:17→23:58)
[2019-11-08] MEDS: Acetaminophen 650 MG/20.3 ML UDCUP PO SCH ×5 (00:17→23:57)
[2019-11-08] MEDS: Vancomycin 1.5 GRAM/300 ML BAG 1.5 GM in Premix Bag 1 BAG IVPB SCH ×3 (01:46→17:35)
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
[2019-11-08] MEDS: Cefepime 2 GM in Sodium Chloride 0.9% 100 ML IVPB SCH (05:11)
[2019-11-08] MEDS: Ibuprofen 600 MG TAB PO SCH ×3 (05:12→21:11)
[2019-11-08 06:22] LABS: #Eosinphils 0.2 thou/uL (0.0-0.7); #Lymphocytes 1.5 thou/uL (1.20-3.40); #Monocytes 1.5 thou/uL (0.11-0.59); #Neutrophils 9.2 thou/uL (1.40-6.50); %Basophils 0.3 % (0.0-1.0); %Eosinophils 1.5 % (0.0-10.0); %Lymphocytes 12.3 % (21.0-51.0); %Monocytes 12.2 % (0.0-10.0); %Neutrophils 73.7 % (42.0-75.0); Mean Corpuscular Hemoglobin 27.4 pg (27.0-31.0); Mean Corpuscular Volume 85.8 fL (78.0-98.0); Mean Platelet Volume 8.8 fL (7.4-10.4); Platelet Count 698 thou/uL (130-400); Red Blood Cell (RBC) Count 3.29 mill/uL (4.70-6.10); White Blood Cell (WBC) Count 12.4 thou/uL (4.8-10.8)
[2019-11-08 06:40] LABS: Anion Gap 15 mmol/L (10-20); BUN (Urea Nitrogen) 21 mg/dL (8.9-20.6); Calc. Creatinine Clearance 173 mL/min (70-130); Calcium 9.1 mg/dL (7.8-10.44); Carbon Dioxide 21 mmol/L (22-29); Chloride 106 mmol/L (98-107); Estimated GFR-MDRD Greater than 90; Glucose 134 mg/dL (70-105); Magnesium 2.1 mg/dL (1.6-2.6); Phosphorus 3.5 mg/dL (2.3-4.7); Potassium 4.2 mmol/L (3.5-5.1); Sodium 138 mmol/L (136-145)
[2019-11-08] MEDS: Saccharomyces boulardii 250 MG CAP PO SCH ×2 (08:33→20:41)
[2019-11-08] MEDS: Metamucil PACK PER TUBE SCH (08:33)
[2019-11-08] MEDS: Chlorhexidine Gluconate 15 ML UDCUP SSP SCH ×2 (08:33→20:48)
[2019-11-08] MEDS: Ascorbic Acid 500 mg Chewable Tablet PO SCH ×2 (08:34→17:36)
[2019-11-08] MEDS: Ferrous Sulfate 325 MG TAB PO SCH ×2 (08:34→17:36)
[2019-11-08] MEDS: Enoxaparin Sodium 40 MG/0.4 ML SYRINGE SC SCH (08:34)
[2019-11-08] MEDS: Amantadine HCl 100 mg Capsule PO SCH ×2 (08:34→20:42)
[2019-11-08] MEDS: Famotidine 20 MG TAB PER TUBE SCH ×2 (08:34→20:41)
[2019-11-08] MEDS: Aluminum & Magnesium Hydroxide 60 ML, Lidocaine 2% Viscous Solution 30 ML, diphenhydrAM... SSP SCH ×2 (08:35→20:42)
[2019-11-08 10:52] LABS: Neutrophil 65 % (42-75)
[2019-11-08 12:30] LABS: Neutrophil 69 % (42-75)
[2019-11-08 13:02] LABS: Neutrophil 66 % (42-75)
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
--- NOTE | 2019-11-08 22:50 | PRG ---
DATE OF SERVICE: 11/08/2019 The patient is postop day #16 after undergoing emergent right hemicraniectomy. Additionally, he underwent replacement of left ventriculostomy yesterday. The patient was evaluated during rounds this morning. He was awake, alert, and following commands. He remains on mechanical ventilator support. He continues moving all extremities and demonstrates excellent strength throughout his upper and lower extremities bilaterally. His drain output has been averaging 11-12 mL overnight and appears to be clearing. A CSF sample was obtained yesterday and remains no growth at 24 hours. The patient has remained afebrile over the last three days. Overall, the patient continues to do very well. Our team remains optimistic that he will continue to have a favorable recovery. Tentative plan is to place a left ventriculoperitoneal shunt with Dr. aRzo's assistance next Thursday11/15/2019. At this time, we will also plan to replace his right bone flap. We will continue to closely monitor his drain output. Our team has given instructions to the nursing staff that his EVD should be left open to drain at all times, except during transport. The patient can be up to a neuro chair with drain open. No helmet needs to be worn when in the neuro chair unless the patient begins thrashing about. Please call our team for any neurologic changes or other concerns. Job ID: [id number] MTDD
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
[2019-11-09] MEDS: Vancomycin 1.5 GRAM/300 ML BAG 1.5 GM in Premix Bag 1 BAG IVPB SCH ×3 (02:06→18:10)
[2019-11-09] MEDS ORDERED: oxyCODONE 5 MG TAB ONE (06:00)
[2019-11-09] MEDS ORDERED: Acetaminophen 650 MG/20.3 ML UDCUP ONE (06:00)
[2019-11-09] MEDS ORDERED: Ibuprofen 600 MG TAB ONE (06:00)
--- NOTE | 2019-11-09 09:00 | PRG ---
DATE OF SERVICE: 11/09/2019 The patient is 2 days status post replacement of a left ventriculostomy catheter. His drain output has averaged 11 mL/hour overnight. He does have low-grade temperature of 100.1 F this morning. His skull flap is full, but soft. The patient remains stable neurologically. He is awake and alert this morning. He is moving all extremities and following commands. We will get him up to a neuro chair today. Reiterated with the nurse that his EVD should be kept open to drain at all times, except during transport. Plan remains to place left-sided RESULTS TECHNICIAN shunt with Dr. Razo next Thursday, immediately followed by replacement of right bone flap. Please call for any neurologic changes or other concerns. Job ID: [id number] [facility]
[2019-11-09] MEDS: Saccharomyces boulardii 250 MG CAP PO SCH ×2 (09:49→21:38)
[2019-11-09] MEDS: Famotidine 20 MG TAB PER TUBE SCH ×2 (09:49→21:38)
[2019-11-09] MEDS: Ascorbic Acid 500 mg Chewable Tablet PO SCH ×2 (09:49→17:35)
[2019-11-09] MEDS: Ferrous Sulfate 325 MG TAB PO SCH ×2 (09:49→17:35)
[2019-11-09] MEDS: Aluminum & Magnesium Hydroxide 60 ML, Lidocaine 2% Viscous Solution 30 ML, diphenhydrAM... SSP SCH (09:50)
[2019-11-09] MEDS: Enoxaparin Sodium 40 MG/0.4 ML SYRINGE SC SCH (09:51)
[2019-11-09] MEDS: Chlorhexidine Gluconate 15 ML UDCUP SSP SCH ×2 (09:52→21:40)
[2019-11-09] MEDS: Metamucil PACK PER TUBE SCH (09:54)
[2019-11-09] MEDS: Ibuprofen 600 MG TAB PO SCH ×3 (09:58→21:39)
[2019-11-09] MEDS: Acetaminophen 650 MG/20.3 ML UDCUP PO SCH ×3 (09:58→17:35)
[2019-11-09 10:06] LABS: Vancomycin, Trough 12.6 ug/mL
[2019-11-09] MEDS: Amantadine HCl 100 mg Capsule PO SCH ×2 (11:06→21:39)
[2019-11-09] MEDS: oxyCODONE 5 MG TAB PO SCH (11:40)
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
[2019-11-09] MEDS: Melatonin 3 MG TAB PO SCH (21:38)
[2019-11-09] MEDS: diphenhydrAMINE 50 MG/ML VIAL IVP PRN (21:39)
[2019-11-10] MEDS: Acetaminophen 650 MG/20.3 ML UDCUP PO SCH ×4 (00:56→17:30)
[2019-11-10] MEDS: Vancomycin 1.5 GRAM/300 ML BAG 1.5 GM in Premix Bag 1 BAG IVPB SCH (02:02)
[2019-11-10] MEDS: Ibuprofen 600 MG TAB PO SCH ×3 (06:04→21:08)
[2019-11-10] MEDS: Ferrous Sulfate 325 MG TAB PO SCH ×2 (08:56→17:30)
[2019-11-10] MEDS: Ascorbic Acid 500 mg Chewable Tablet PO SCH ×2 (08:56→17:30)
[2019-11-10] MEDS: Amantadine HCl 100 mg Capsule PO SCH ×2 (08:57→21:08)
[2019-11-10] MEDS: Saccharomyces boulardii 250 MG CAP PO SCH ×2 (08:57→21:08)
[2019-11-10] MEDS: Enoxaparin Sodium 40 MG/0.4 ML SYRINGE SC SCH (08:57)
[2019-11-10] MEDS: Famotidine 20 MG TAB PER TUBE SCH ×2 (08:57→21:07)
[2019-11-10] MEDS: Chlorhexidine Gluconate 15 ML UDCUP SSP SCH ×2 (08:57→21:09)
[2019-11-10] MEDS: Metamucil PACK PER TUBE SCH (08:57)
[2019-11-10] MEDS: Vancomycin HCl 1.75 GM in Sodium Chloride 0.9% 500 ML IVPB SCH ×2 (09:36→18:30)
[2019-11-10 09:45] LABS: #Basophils 0.1 thou/uL (0.0-0.2); #Eosinphils 0.1 thou/uL (0.0-0.7); #Lymphocytes 1.1 thou/uL (1.20-3.40); #Monocytes 1.1 thou/uL (0.11-0.59); #Neutrophils 6.1 thou/uL (1.40-6.50); %Basophils 0.7 % (0.0-1.0); %Eosinophils 1.7 % (0.0-10.0); %Lymphocytes 13.1 % (21.0-51.0); %Neutrophils 71.6 % (42.0-75.0); Hemoglobin 9.3 g/dL (14.0-18.0); Mean Corpuscular HGB CONC 32.3 g/dL (32.0-36.0); Mean Corpuscular Hemoglobin 27.7 pg (27.0-31.0); Mean Corpuscular Volume 85.8 fL (78.0-98.0); Mean Platelet Volume 8.5 fL (7.4-10.4); Platelet Count 610 thou/uL (130-400); RBC Distribution Width 14.5 % (11.5-14.5); Red Blood Cell (RBC) Count 3.36 mill/uL (4.70-6.10); White Blood Cell (WBC) Count 8.5 thou/uL (4.8-10.8)
[2019-11-10] MEDS ORDERED: Metamucil PACK PER TUBE SCH (11:15)
[2019-11-10] MEDS: Fentanyl 100 MCG/2 ML VIAL SLOW IVP PRN ×2 (11:25→17:37)
--- NOTE | 2019-11-10 11:26 | PRG ---
DATE OF SERVICE: 11/10/2019 Aj is now 18 days into his hospitalization. His trach has just been downsized. He is wide awake. He even today. His EVD remains open at 0, and he is neurologically continuing to demonstrate improvement. His flap is minimally full, but very soft. At this point, we will get a head CT Thursday and plan for shunt and bone flap placement Thursday with the plan for dismissal to [facility] by the end of next Job ID: [id number]
[2019-11-10 11:50] LABS: Albumin 4.1 g/dL (3.5-5.0)
[2019-11-10 11:51] LABS: Chloride 102 mmol/L (98-107); Potassium 4.1 mmol/L (3.5-5.1); Sodium 135 mmol/L (136-145)
[2019-11-10 11:52] LABS: Calcium 9.6 mg/dL (7.8-10.44)
[2019-11-10 11:53] LABS: Globulin 3.6 g/dL (2.4-3.5); Glucose 139 mg/dL (70-105); Protein, Total 7.7 g/dL (6.0-8.3)
[2019-11-10 11:54] LABS: Anion Gap 15 mmol/L (10-20); Carbon Dioxide 22 mmol/L (22-29)
[2019-11-10 11:55] LABS: Alkaline Phosphatase 319 U/L (40-110); Bilirubin, Total 0.4 mg/dL (0.2-1.2)
[2019-11-10 11:56] LABS: Calc. Creatinine Clearance 166 mL/min (70-130); Estimated GFR-MDRD Greater than 90
[2019-11-10 11:57] LABS: BUN (Urea Nitrogen) 19 mg/dL (8.9-20.6)
[2019-11-10 11:58] LABS: AST (SGOT) 46 U/L (5-34)
[2019-11-10 11:59] LABS: ALT (SGPT) 157 U/L (8-55)
[2019-11-10] MEDS: Ondansetron PF 4 MG/2 ML Vial IVP PRN (17:36)
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
[2019-11-10] MEDS: diphenhydrAMINE 50 MG/ML VIAL IVP PRN (21:08)
[2019-11-10] MEDS: Melatonin 3 MG TAB PO SCH (21:08)
[2019-11-11] MEDS: Acetaminophen 650 MG/20.3 ML UDCUP PO SCH ×5 (00:12→23:30)
[2019-11-11] MEDS: Vancomycin HCl 1.75 GM in Sodium Chloride 0.9% 500 ML IVPB SCH ×3 (01:53→13:47)
[2019-11-11] MEDS: Ibuprofen 600 MG TAB PO SCH ×3 (06:14→21:45)
[2019-11-11] MEDS: Saccharomyces boulardii 250 MG CAP PO SCH ×2 (07:45→21:45)
[2019-11-11] MEDS: Ferrous Sulfate 325 MG TAB PO SCH ×2 (07:45→16:03)
[2019-11-11] MEDS: Ascorbic Acid 500 mg Chewable Tablet PO SCH ×2 (07:45→16:03)
[2019-11-11] MEDS: Famotidine 20 MG TAB PER TUBE SCH ×2 (07:45→21:45)
[2019-11-11] MEDS: Amantadine HCl 100 mg Capsule PO SCH ×2 (07:45→21:41)
[2019-11-11] MEDS: Enoxaparin Sodium 40 MG/0.4 ML SYRINGE SC SCH (07:45)
[2019-11-11] MEDS: Chlorhexidine Gluconate 15 ML UDCUP SSP SCH ×2 (07:47→21:45)
[2019-11-11] MEDS ORDERED: Metamucil PACK PER TUBE SCH (09:00)
[2019-11-11 09:32] LABS: Vancomycin, Trough 13.9 ug/mL
[2019-11-11] MEDS: Fentanyl 100 MCG/2 ML VIAL SLOW IVP PRN (10:14)
[2019-11-11] MEDS: Vancomycin 1.5 GRAM/300 ML BAG 1.5 GM in Premix Bag 1 BAG IVPB SCH ×3 (11:46→23:30)
[2019-11-11] MEDS: diphenhydrAMINE 50 MG/ML VIAL IVP PRN (12:35)
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
[2019-11-11] MEDS: Melatonin 3 MG TAB PO SCH (21:44)
[2019-11-11] MEDS: Metamucil PACK PER TUBE SCH (23:19)
[2019-11-12 04:03] LABS: Vancomycin, Trough 25.7 ug/mL
[2019-11-12 04:06] LABS: Anion Gap 15 mmol/L (10-20); BUN (Urea Nitrogen) 18 mg/dL (8.9-20.6); Calc. Creatinine Clearance 186 mL/min (70-130); Calcium 8.9 mg/dL (7.8-10.44); Carbon Dioxide 22 mmol/L (22-29); Chloride 103 mmol/L (98-107); Estimated GFR-MDRD Greater than 90; Glucose 120 mg/dL (70-105); Potassium 4.4 mmol/L (3.5-5.1); Sodium 136 mmol/L (136-145)
[2019-11-12 05:06] LABS: Band 10 % (5-11); Eosinophils 1 % (0-10); Hemoglobin 9.4 g/dL (14.0-18.0); Lymphocytes 23 % (21-51); MDiff Complete? YES; Mean Corpuscular HGB CONC 31.5 g/dL (32.0-36.0); Mean Corpuscular Hemoglobin 27.7 pg (27.0-31.0); Mean Corpuscular Volume 87.8 fL (78.0-98.0); Mean Platelet Volume 8.2 fL (7.4-10.4); Monocytes 11 % (0-10); Neutrophil 55 % (42-75); Platelet Count 473 thou/uL (130-400); RBC Distribution Width 14.4 % (11.5-14.5); White Blood Cell (WBC) Count 5.7 thou/uL (4.8-10.8)
[2019-11-12] MEDS: Acetaminophen 650 MG/20.3 ML UDCUP PO SCH ×3 (05:55→17:30)
[2019-11-12] MEDS: Ibuprofen 600 MG TAB PO SCH ×3 (05:55→20:53)
[2019-11-12] MEDS: Enoxaparin Sodium 40 MG/0.4 ML SYRINGE SC SCH (08:54)
[2019-11-12] MEDS: oxyCODONE 5 MG TAB PO PRN ×2 (08:54→14:51)
[2019-11-12] MEDS: Famotidine 20 MG TAB PER TUBE SCH ×2 (08:54→20:52)
[2019-11-12] MEDS: Ferrous Sulfate 325 MG TAB PO SCH ×2 (08:54→17:25)
[2019-11-12] MEDS: Amantadine HCl 100 mg Capsule PO SCH ×2 (08:54→20:52)
[2019-11-12] MEDS: Saccharomyces boulardii 250 MG CAP PO SCH ×2 (08:56→20:53)
[2019-11-12] MEDS: Ascorbic Acid 500 mg Chewable Tablet PO SCH ×2 (08:56→17:25)
[2019-11-12] MEDS ORDERED: oxyCODONE 5 MG TAB PO SCH (09:15)
[2019-11-12] MEDS: Chlorhexidine Gluconate 15 ML UDCUP SSP SCH ×2 (09:22→20:52)
[2019-11-12] MEDS: Metamucil PACK PER TUBE SCH ×2 (09:22→20:54)
--- NOTE | 2019-11-12 11:26 | EKG ---
Test Reason : Blood Pressure : / mmHG Vent. Rate : 116 BPM Atrial Rate : 116 BPM P-R Int : 118 ms QRS Dur : 124 ms QT Int : 338 ms P-R-T Axes : 067 268 076 degrees QTc Int : 469 ms Poor data quality, interpretation may be adversely affected Sinus tachycardia Biatrial enlargement Right bundle branch block , plus right ventricular hypertrophy Left ventricular hypertrophy with repolarization abnormality Cannot rule out Septal infarct , age undetermined Abnormal ECG Traumatic cardiac contusion Confirmed by LAURA ZAVALETA, VESTA Tran ([id number]), editor news ACE VELARDE ([id number]) on 11/12/2019 11:26:06 AM Referred By: Confirmed By:VESTA SANCHEZ MD
[2019-11-12] MEDS: Vancomycin HCl 1.25 GM in Sodium Chloride 0.9% 250 ML 250 ML IVPB SCH ×2 (11:52→17:30)
[2019-11-12] MEDS ORDERED: diphenhydrAMINE 25 MG CAP PER TUBE SCH (12:15)
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
--- NOTE | 2019-11-12 17:59 | PRG ---
DATE OF SERVICE: 11/12/2019 The patient is seen and examined. Mom at the bedside. The patient is alert and appropriate and mouthing words appropriately. Following commands. The EVD is opened at 0 and draining clear CSF. I have discussed the situation in detail with the patient and his mother and all questions were answered. A CT is planned for Thursday and cranioplasty with shunting is planned for Thursday. Job ID: [id number]
[2019-11-12] MEDS: Melatonin 3 MG TAB PO SCH (20:52)
[2019-11-13] MEDS: Acetaminophen 650 MG/20.3 ML UDCUP PO SCH ×5 (00:27→23:17)
[2019-11-13] MEDS: Vancomycin HCl 1.25 GM in Sodium Chloride 0.9% 250 ML 250 ML IVPB SCH (00:28)
[2019-11-13 03:55] LABS: Band 14 % (5-11); Eosinophils 2 % (0-10); Hemoglobin 9.5 g/dL (14.0-18.0); Large Platelets SLIGHT; Lymphocytes 21 % (21-51); MDiff Complete? YES; Mean Corpuscular HGB CONC 32.8 g/dL (32.0-36.0); Mean Corpuscular Hemoglobin 28.3 pg (27.0-31.0); Mean Corpuscular Volume 86.3 fL (78.0-98.0); Mean Platelet Volume 8.4 fL (7.4-10.4); Monocytes 17 % (0-10); Neutrophil 46 % (42-75); Platelet Count 436 thou/uL (130-400); Platelet Morphology Comment Appears Increased; RBC Distribution Width 14.5 % (11.5-14.5); Red Blood Cell (RBC) Count 3.37 mill/uL (4.70-6.10); White Blood Cell (WBC) Count 5.4 thou/uL (4.8-10.8)
[2019-11-13 04:02] LABS: ALT (SGPT) 100 U/L (8-55); AST (SGOT) 33 U/L (5-34); Albumin 3.8 g/dL (3.5-5.0); Alkaline Phosphatase 251 U/L (40-110); Anion Gap 14 mmol/L (10-20); BUN (Urea Nitrogen) 19 mg/dL (8.9-20.6); Bilirubin, Total 0.3 mg/dL (0.2-1.2); Calc. Creatinine Clearance 187 mL/min (70-130); Calcium 9.1 mg/dL (7.8-10.44); Carbon Dioxide 23 mmol/L (22-29); Chloride 102 mmol/L (98-107); Estimated GFR-MDRD Greater than 90; Globulin 3.3 g/dL (2.4-3.5); Glucose 120 mg/dL (70-105); Potassium 4.4 mmol/L (3.5-5.1); Protein, Total 7.1 g/dL (6.0-8.3); Sodium 135 mmol/L (136-145)
[2019-11-13 05:12] LABS: Vancomycin, Trough 24.7 ug/mL
[2019-11-13] MEDS: Ibuprofen 600 MG TAB PO SCH ×3 (05:17→21:07)
[2019-11-13] MEDS: Ascorbic Acid 500 mg Chewable Tablet PO SCH ×2 (08:52→16:46)
[2019-11-13] MEDS: Famotidine 20 MG TAB PER TUBE SCH ×2 (08:52→21:08)
[2019-11-13] MEDS: Enoxaparin Sodium 40 MG/0.4 ML SYRINGE SC SCH (08:53)
[2019-11-13] MEDS: Ferrous Sulfate 325 MG TAB PO SCH ×2 (08:53→16:46)
[2019-11-13] MEDS: Saccharomyces boulardii 250 MG CAP PO SCH ×2 (08:53→21:08)
[2019-11-13] MEDS: Amantadine HCl 100 mg Capsule PO SCH ×2 (08:56→21:08)
[2019-11-13] MEDS: Chlorhexidine Gluconate 15 ML UDCUP SSP SCH ×2 (08:56→21:07)
[2019-11-13] MEDS: Metamucil PACK PER TUBE SCH ×2 (08:57→21:08)
[2019-11-13 09:53] LABS: Calc. Creatinine Clearance 185 mL/min (70-130); Estimated GFR-MDRD Greater than 90
[2019-11-13] MEDS: Vancomycin 1 GM in Premix Bag 1 BAG IVPB SCH ×3 (11:02→23:17)
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
[2019-11-13] MEDS: Melatonin 3 MG TAB PO SCH (21:07)
[2019-11-14] MEDS: Ibuprofen 600 MG TAB PO SCH ×3 (05:18→21:11)
[2019-11-14] MEDS: Acetaminophen 650 MG/20.3 ML UDCUP PO SCH ×3 (05:18→17:34)
[2019-11-14 05:30] LABS: Vancomycin, Trough 15.4 ug/mL
[2019-11-14] MEDS: Vancomycin 1 GM in Premix Bag 1 BAG IVPB SCH ×3 (05:40→17:54)
--- NOTE | 2019-11-14 08:03 | CT ---
CT head noncontrast HISTORY: Status post right hemicraniectomy. Preop planning for repair. COMPARISON: 11/07/2019. FINDINGS: Large right frontal craniectomy defect again demonstrated with herniation of right frontal lobe and CSF through the defect. Overlying hyperdense sheet remains in place. Heterogeneous mixed density material within the herniated CSF now layers more precisely within the dependent portion of t he CSF. Encephalomalacia at the inferior aspect of each frontal lobe and the right parietal lobe again demons trated. Small amount of hypodense left subdural fluid collection is smaller and more dense than on the prior exam. The right parietal subdural hematoma component is slightly less dense and more conspi cuous than on the prior study. Interval revision of the left frontal ventriculostomy catheter, with the tip now at the level of the third ventricle. Ventricles remain decompressed. Small amount of hyperdense fluid is adjacent to the new ventriculostomy catheter in the left frontal lobe and within the tract immediately anterior t o it were the prior catheter has been removed. Opacification of the mastoid air cells and frontal sinus and other recent posttraumatic changes are s table. IMPRESSION : New left frontal ventriculostomy catheter is in good position. No evidence of hydrocephalus. Large right craniectomy defect/herniation appears stable. Interval evolution of the subdural fluid collections and other posttraumatic changes.
[2019-11-14] MEDS: Famotidine 20 MG TAB PER TUBE SCH ×2 (09:15→21:10)
[2019-11-14] MEDS: Ascorbic Acid 500 mg Chewable Tablet PO SCH ×2 (09:15→17:34)
[2019-11-14] MEDS: Ferrous Sulfate 325 MG TAB PO SCH ×2 (09:15→17:34)
[2019-11-14] MEDS: Saccharomyces boulardii 250 MG CAP PO SCH ×2 (09:15→21:11)
[2019-11-14] MEDS: Chlorhexidine Gluconate 15 ML UDCUP SSP SCH ×2 (09:16→21:10)
[2019-11-14] MEDS: Enoxaparin Sodium 40 MG/0.4 ML SYRINGE SC SCH (09:16)
[2019-11-14] MEDS: Amantadine HCl 100 mg Capsule PO SCH ×2 (09:16→21:10)
[2019-11-14] MEDS: Metamucil PACK PER TUBE SCH ×2 (09:17→21:10)
--- NOTE | 2019-11-14 10:29 | PRG ---
DATE OF SERVICE: 11/14/2019 Aj is doing very well this morning and is awake, alert, and appropriate. He is able speak clearly with finger over his tracheostomy. He is smiling and joking with his family at bedside. He is moving all extremities and demonstrates good strength. He has been afebrile over the weekend. His ventriculostomy output is clearing compared to last week, with an average output of 5 to 6 mL overnight. The output increased to 20 mL at 0500 and 10 mL at 0600. His EVD has been open to drain at 0 cm of water with 0 level at the ear canal. His intracranial pressure has been averaging approximately 6 mmHg. His CSF sample from last week yielded no growth after 5 days. The patient has been experiencing headaches over the weekend, primarily with positional changes or movement. He rates his current headache is 5/10. He voices no other complaints at this time. Plan remains for patient to return to the operating room tomorrow for placement of a left-sided ventriculoperitoneal shunt followed by right cranioplasty. Dr. Razo will assist our team with the shunt placement. It is anticipated that the patient will be discharged to [facility] later this week pending how he does postoperatively. Please call for any neurologic changes or other concerns. Job ID: [id number] [facility]
[2019-11-14] MEDS ORDERED: oxyCODONE 5 MG TAB PO SCH (14:30)
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
--- NOTE | 2019-11-14 18:53 | RAD ---
PORTABLE CHEST: DATE: 11-14-2019 PROVIDED CLINICAL HISTORY: Fever FINDINGS: Comparison 11-05-2019. Cardiac and mediastinal silhouette is unchanged in appearance. Tracheostomy neelima liance is seen in similar position. No focal consolidation, pleural fluid, or pneumothorax apparent. IMPRESSION: No evidence for an acute cardiopulmonary process. POS: CLARISSA
[2019-11-14] MEDS: Ondansetron PF 4 MG/2 ML Vial IVP PRN (20:05)
[2019-11-14] MEDS: Melatonin 3 MG TAB PO SCH (21:10)
[2019-11-15] MEDS: Piperacillin/Tazobactam 3.375 GM in Sodium Chloride 0.9% 100 ML IVPB SCH ×5 (00:26→23:24)
[2019-11-15] MEDS: Acetaminophen 650 MG/20.3 ML UDCUP PO SCH ×5 (00:26→23:19)
[2019-11-15] MEDS: Vancomycin 1 GM in Premix Bag 1 BAG IVPB SCH ×4 (00:26→17:29)
[2019-11-15 00:58] LABS: Bacteria/HPF None Seen HPF (None Seen); Bilirubin Negative (Negative); Blood, Urine Negative (Negative); Clarity Clear (Clear); Glucose, Urine (Dipstick) Normal (Negative); Ketone, Urine Negative (Negative); Leukocyte Negative Leu/uL (Negative); Nitrite Negative (Negative); Protein, Urine (Dipstick) 10 mg/dL (Neg-Trace); RBC/HPF 0-3 HPF (0-3); Specific Gravity, Urine 1.026 (1.002-1.036); Squamous Epithelial 0-3 HPF (0-3); Urobilinogen Normal mg/dL (Less than 2); WBC/HPF 0-3 HPF (0-3); pH, Urine 5.5 (5.0-9.0)
[2019-11-15 01:02] LABS: Urine Culture Reflex No No
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
[2019-11-15] MEDS: Ibuprofen 600 MG TAB PO SCH (05:26)
[2019-11-15 05:48] LABS: Vancomycin, Trough 23.2 ug/mL
[2019-11-15 05:52] LABS: Anion Gap 15 mmol/L (10-20); BUN (Urea Nitrogen) 16 mg/dL (8.9-20.6); Calc. Creatinine Clearance 166 mL/min (70-130); Calcium 9.7 mg/dL (7.8-10.44); Carbon Dioxide 27 mmol/L (22-29); Chloride 96 mmol/L (98-107); Estimated GFR-MDRD Greater than 90; Glucose 98 mg/dL (70-105); Magnesium 1.9 mg/dL (1.6-2.6); Potassium 4.3 mmol/L (3.5-5.1); Sodium 134 mmol/L (136-145)
[2019-11-15 05:53] LABS: Band 5 % (5-11); Eosinophils 3 % (0-10); Hemoglobin 10.5 g/dL (14.0-18.0); Lymphocytes 29 % (21-51); MDiff Complete? YES; Mean Corpuscular HGB CONC 32.1 g/dL (32.0-36.0); Mean Corpuscular Hemoglobin 27.2 pg (27.0-31.0); Mean Corpuscular Volume 84.9 fL (78.0-98.0); Metamyelocyte 1 % (0-0); Monocytes 20 % (0-10); Neutrophil 41 % (42-75); Platelet Count 361 thou/uL (130-400); Platelet Morphology Comment Appears Adequate; RBC Distribution Width 14.1 % (11.5-14.5); Red Blood Cell (RBC) Count 3.86 mill/uL (4.70-6.10); White Blood Cell (WBC) Count 4.5 thou/uL (4.8-10.8)
[2019-11-15] MEDS ORDERED: Magnesium 2 GM/50 ML 2 GM in Premix Bag 1 BAG IVPB SCH (06:15)
[2019-11-15] MEDS ORDERED: Thrombin 5000 UNITS/5 ML VIAL ONE (06:26)
[2019-11-15] MEDS ORDERED: Bacitracin Zinc Ointment 30 gm TUBE ONE (06:26)
[2019-11-15] MEDS ORDERED: Lidocaine 0.5%/Epinephrine 1:200,000 50 ml Vial ONE (06:26)
[2019-11-15] MEDS ORDERED: Midazolam HCl 5 mg/5 ml Vial ONE (07:24)
[2019-11-15] MEDS ORDERED: Vecuronium 10 MG VIAL ONE ×3 (07:24→13:40)
[2019-11-15] MEDS ORDERED: Fentanyl 250 MCG/5 ML VIAL ONE (07:24)
[2019-11-15] MEDS ORDERED: IN MANNITOL IVPB SCH (07:45)
[2019-11-15] MEDS ORDERED: ADMIXTURE FEE IVPB SCH (07:45)
[2019-11-15] MEDS ORDERED: ADMIXTURE FEE IV SCH (07:45)
[2019-11-15] MEDS ORDERED: IN MANNITOL IV SCH (07:45)
[2019-11-15] MEDS: Amantadine HCl 100 mg Capsule PO SCH ×2 (07:47→21:06)
[2019-11-15] MEDS: Ferrous Sulfate 325 MG TAB PO SCH ×2 (07:47→17:29)
[2019-11-15] MEDS: Ascorbic Acid 500 mg Chewable Tablet PO SCH ×2 (07:47→17:29)
[2019-11-15] MEDS: Chlorhexidine Gluconate 15 ML UDCUP SSP SCH ×2 (07:50→21:05)
[2019-11-15] MEDS: Enoxaparin Sodium 40 MG/0.4 ML SYRINGE SC SCH (07:51)
[2019-11-15] MEDS: Famotidine 20 MG TAB PER TUBE SCH ×2 (07:51→21:06)
[2019-11-15] MEDS: Saccharomyces boulardii 250 MG CAP PO SCH ×2 (07:51→21:05)
[2019-11-15] MEDS: Metamucil PACK PER TUBE SCH ×2 (07:51→21:07)
[2019-11-15] MEDS ORDERED: EPINEPHrine 1 MG/ML AMP ONE (07:59)
[2019-11-15] MEDS ORDERED: Bupivacaine 0.25% HCL 30 ML VIAL ONE (07:59)
[2019-11-15] MEDS ORDERED: Mannitol 12.5 GM/50 ML ONE (08:11)
[2019-11-15] MEDS ORDERED: Phenylephrine 10 MG/ML VIAL ONE (09:06)
[2019-11-15] MEDS ORDERED: SUGAMMADEX SODIUM 200 MG/2 ML VIAL ONE (09:59)
[2019-11-15] MEDS ORDERED: Morphine 10 MG/ML VIAL SLOW IVP PRN (10:42)
[2019-11-15] MEDS ORDERED: Fentanyl 100 MCG/2 ML VIAL ONE (10:53)
[2019-11-15] MEDS: Acetaminophen/Codeine 30-300mg Tablet PO PRN ×2 (11:57→18:32)
[2019-11-15] MEDS: diphenhydrAMINE 50 MG/ML VIAL IVP PRN (11:57)
[2019-11-15] MEDS: Fentanyl 100 MCG/2 ML VIAL SLOW IVP PRN ×5 (13:25→23:38)
[2019-11-15] MEDS ORDERED: Dexamethasone 20 MG/5 ML VIAL ONE (13:40)
[2019-11-15] MEDS ORDERED: Ondansetron PF 4 MG/2 ML Vial ONE (13:40)
[2019-11-15] MEDS ORDERED: PROPOFOL 200 MG/20 ML VIAL ONE (13:40)
[2019-11-15] MEDS ORDERED: PHENYLEPHRINE-NS 100 MCG/ML 10 ML SYRINGE ONE (13:40)
--- NOTE | 2019-11-15 15:55 | OP ---
DATE OF PROCEDURE: 11/15/2019 LOCATION: OR-11 SYSTEMS SECURITY CONSULTANT: Ira Barrios PA-C This surgery is also done in conjunction with Dr. Bro Razo, who did the peritoneal portion. PROCEDURES PERFORMED: 1. Placement of left frontal ventriculoperitoneal shunt with Strata valve programmed to 1.0. 2. Replacement of bone flap. DESCRIPTION OF PROCEDURE: After informed consent was obtained from the patient's family, the patient was brought to the OR. Proper patient, pause, and identification were carried out. The left frontal external ventricular drain was identified, confirmed patent, and hair was clipped along with identification of the left frontal wound that would allow for approach to the left Roland point and also a retroauricular wound. Dr. Razo pete out his wounds in the peritoneum. We draped the whole right hemicraniectomy wound along with a left external ventricular drain conversion to shunt wound. Proper patient, pause, and identification were carried out. Left frontal Roland point was identified. The drain identified and snipped. We then tunneled a peritoneal catheter from the retroauricular wound that was created to the peritoneum. Then this was tunneled cephalad from the retroauricular wound to the right frontal Roland point. This was connected to the valve, which was programmed at 1.0. This was then connected to the drain catheter that was in the brain with confirmed flow. Copious irrigation occurred throughout as did maximizing hemostasis. The wounds were closed in anatomic layers following sprinkling of vancomycin powder. We then turned our attention to a right hemicraniectomy wound. This wound was opened as well after it had been sterilely cleansed, prepared, and draped. The silastic sheath removed. The dura identified. Bone flap was then replaced and the wound closed in anatomic layers over a subgaleal drain. The patient emerged from anesthesia. Job ID: [id number]
[2019-11-15] MEDS: Ketorolac Tromethamine 30 MG/ML VIAL IVP SCH ×3 (15:58→23:19)
[2019-11-15] MEDS: Melatonin 3 MG TAB PO SCH (21:06)
[2019-11-15] MEDS: Ondansetron PF 4 MG/2 ML Vial IVP PRN (21:08)
[2019-11-16] MEDS: Vancomycin 1 GM in Premix Bag 1 BAG IVPB SCH ×2 (00:58→08:30)
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
[2019-11-16] MEDS: Acetaminophen/Codeine 30-300mg Tablet PO PRN ×3 (03:12→20:42)
[2019-11-16] MEDS: Ondansetron PF 4 MG/2 ML Vial IVP PRN ×2 (03:17→09:27)
[2019-11-16 03:54] LABS: Anion Gap 17 mmol/L (10-20); BUN (Urea Nitrogen) 16 mg/dL (8.9-20.6); Calc. Creatinine Clearance 149 mL/min (70-130); Calcium 8.9 mg/dL (7.8-10.44); Carbon Dioxide 21 mmol/L (22-29); Chloride 101 mmol/L (98-107); Estimated GFR-MDRD Greater than 90; Glucose 100 mg/dL (70-105); Magnesium 2.1 mg/dL (1.6-2.6); Potassium 4.6 mmol/L (3.5-5.1); Sodium 134 mmol/L (136-145)
[2019-11-16] MEDS: Fentanyl 100 MCG/2 ML VIAL SLOW IVP PRN ×3 (04:09→14:50)
[2019-11-16 05:03] LABS: Band 5 % (5-11); Hemoglobin 10.3 g/dL (14.0-18.0); Hypochromia SLIGHT = 6-15 cells (100X) (0-5/hpf); Lymphocytes 23 % (21-51); MDiff Complete? YES; Mean Corpuscular HGB CONC 30.1 g/dL (32.0-36.0); Mean Corpuscular Hemoglobin 25.9 pg (27.0-31.0); Mean Corpuscular Volume 86.1 fL (78.0-98.0); Mean Platelet Volume 8.3 fL (7.4-10.4); Monocytes 33 % (0-10); Neutrophil 39 % (42-75); Platelet Count 264 thou/uL (130-400); Platelet Morphology Comment Appears Adequate; RBC Distribution Width 14.1 % (11.5-14.5); Red Blood Cell (RBC) Count 3.97 mill/uL (4.70-6.10); White Blood Cell (WBC) Count 5.9 thou/uL (4.8-10.8)
[2019-11-16] MEDS: Acetaminophen 650 MG/20.3 ML UDCUP PO SCH ×4 (05:56→23:28)
[2019-11-16] MEDS: Ketorolac Tromethamine 30 MG/ML VIAL IVP SCH ×4 (05:56→23:24)
[2019-11-16] MEDS: Piperacillin/Tazobactam 3.375 GM in Sodium Chloride 0.9% 100 ML IVPB SCH ×4 (05:57→23:24)
[2019-11-16 07:25] LABS: Vancomycin, Trough 6.9 ug/mL
[2019-11-16] MEDS: Ascorbic Acid 500 mg Chewable Tablet PO SCH ×2 (09:27→17:54)
[2019-11-16] MEDS: Ferrous Sulfate 325 MG TAB PO SCH ×2 (09:27→17:54)
[2019-11-16] MEDS: Senokot S 8.6-50 MG TAB PO SCH ×2 (09:27→20:41)
[2019-11-16] MEDS: Amantadine HCl 100 mg Capsule PO SCH ×2 (09:27→20:50)
[2019-11-16] MEDS: Chlorhexidine Gluconate 15 ML UDCUP SSP SCH ×2 (09:29→20:42)
[2019-11-16] MEDS: Famotidine 20 MG TAB PER TUBE SCH ×2 (09:30→20:41)
[2019-11-16] MEDS: Polyethylene Glycol 3350 17 GM Packet PO SCH (09:30)
[2019-11-16] MEDS: Saccharomyces boulardii 250 MG CAP PO SCH ×2 (09:31→20:41)
[2019-11-16] MEDS: Metamucil PACK PER TUBE SCH ×2 (09:31→22:08)
[2019-11-16] MEDS ORDERED: Vancomycin 1 GM in Premix Bag 1 BAG IVPB SCH (10:00)
[2019-11-16] MEDS: Vancomycin 1.5 GRAM/300 ML BAG 1.5 GM in Premix Bag 1 BAG IVPB SCH ×2 (11:15→18:02)
--- NOTE | 2019-11-16 12:29 | PRG ---
DATE OF SERVICE: 11/16/2019 SUBJECTIVE: Aj is now postoperative day #1 after undergoing placement of left ventriculoperitoneal shunt and replacement of right skull flap. The patient appeared to be doing very well this morning and was awake, alert and appropriate. He endorses headache, abdominal pain, and pain in the area of the left clavicle where his distal shunt catheter was tunneled during surgery. He had one episode of emesis last night. He continues to follow commands and is moving all extremities. He demonstrates excellent strength throughout his upper and lower extremity myotomes bilaterally. His pupils are equal, round, and reactive to light bilaterally. The patient has been febrile overnight with a max recorded temperature of 101.4 F at 2300. He has been tachycardic up to 129 beats per minute. However, his blood pressure has been within normal limits. He remains on IV vancomycin and Zosyn. His white blood cell count is 5.9, hemoglobin 10.3, platelets 264. His sodium is slightly low at 134. His drain output has been 90 mL total, with 10 mL overnight. PLAN: We will leave his subgaleal drain for another day and likely remove it tomorrow. The patient is currently on IV vancomycin and zosyn. No additional antibiotics are recommended. The patient can begin to work with therapies today, and our team is fine with him getting out of bed and ambulating with assistance. Plan remains for him to likely go to [facility] later this week. Please call for any neurologic changes or other concerns. Job ID: [id number] MTDD
[2019-11-16] MEDS: diphenhydrAMINE 50 MG/ML VIAL IVP PRN ×2 (14:58→21:05)
--- NOTE | 2019-11-16 16:29 | PRG ---
DATE OF SERVICE: 11/16/2019 SUBJECTIVE: Mr. Kim was seen at bedside today with his parents. He is postoperative day #1, status post OIL SPOT WASHER shunt and bone flap replacement. He reports significant improvement with headaches. He moves all extremities and follows commands. He has had no nausea or vomiting since yesterday. OBJECTIVE: VITAL SIGNS: This morning include blood pressure 124/68, pulse 96, respiratory rate is 21, maximum temperature in last 24 hours is 101.4 degrees Fahrenheit, and oxygen saturation 100% on FiO2 21% on trach collar. HEENT: Pupils equal, round, reactive to light and accommodation. HEART: Reveals regular rate and rhythm. LUNGS: Clear to auscultation bilaterally. Breathing, regular and nonlabored. ABDOMEN: Soft, moderately tender to palpation. No peritoneal signs on examination. NEUROLOGIC: Reveals no focal deficits present. LABORATORY FINDINGS: Today include a CBC with 5900 white blood cells, hemoglobin and hematocrit 10.3 and 34.2 respectively. The platelet count is 264,000. Differential counts as follows; 39 segmented neutrophils, 5 bands, 23 lymphocytes, and 33 monocytes. Metabolic profile; sodium 134, potassium 4.6, chloride is 101, bicarb is 21, BUN 16, creatinine 0.78, glucose 100, magnesium 2.1, and phosphorus is 5.0. IMPRESSION: 1. Postoperative day #1, status post ventriculoperitoneal shunt and bone flap replacement. 2. Mild acute hyponatremia. PLAN: 1. We will resume physical and occupational therapy. 2. Case management working on transfer to inpatient rehabilitation over the next coming days. Job ID: [id number]
[2019-11-16] MEDS ORDERED: Sodium Chloride 0.9% 1,000 ML IV SCH (16:30)
[2019-11-16] MEDS: Melatonin 3 MG TAB PO SCH (20:42)
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
[2019-11-17] MEDS: Vancomycin 1.5 GRAM/300 ML BAG 1.5 GM in Premix Bag 1 BAG IVPB SCH ×3 (02:07→18:54)
[2019-11-17 04:02] LABS: Band 13 % (5-11); Eosinophils 5 % (0-10); Hemoglobin 9.2 g/dL (14.0-18.0); Lymphocytes 22 % (21-51); MDiff Complete? YES; Mean Corpuscular HGB CONC 31.4 g/dL (32.0-36.0); Mean Corpuscular Hemoglobin 26.8 pg (27.0-31.0); Mean Corpuscular Volume 85.4 fL (78.0-98.0); Mean Platelet Volume 8.4 fL (7.4-10.4); Monocytes 19 % (0-10); Neutrophil 40 % (42-75); Platelet Count 287 thou/uL (130-400); Platelet Morphology Comment Appears Adequate; RBC Distribution Width 13.8 % (11.5-14.5); Red Blood Cell (RBC) Count 3.42 mill/uL (4.70-6.10); White Blood Cell (WBC) Count 5.2 thou/uL (4.8-10.8)
[2019-11-17 04:08] LABS: Anion Gap 15 mmol/L (10-20); BUN (Urea Nitrogen) 16 mg/dL (8.9-20.6); Calc. Creatinine Clearance 159 mL/min (70-130); Calcium 8.9 mg/dL (7.8-10.44); Carbon Dioxide 21 mmol/L (22-29); Chloride 102 mmol/L (98-107); Estimated GFR-MDRD Greater than 90; Glucose 105 mg/dL (70-105); Magnesium 1.9 mg/dL (1.6-2.6); Potassium 4.3 mmol/L (3.5-5.1); Sodium 134 mmol/L (136-145)
[2019-11-17] MEDS: Acetaminophen 650 MG/20.3 ML UDCUP PO SCH ×3 (05:17→17:46)
[2019-11-17] MEDS: Ketorolac Tromethamine 30 MG/ML VIAL IVP SCH ×2 (05:17→11:43)
[2019-11-17] MEDS: Piperacillin/Tazobactam 3.375 GM in Sodium Chloride 0.9% 100 ML IVPB SCH (05:18)
[2019-11-17] MEDS: Acetaminophen/Codeine 30-300mg Tablet PO PRN ×2 (06:15→16:28)
[2019-11-17] MEDS: Saccharomyces boulardii 250 MG CAP PO SCH ×2 (08:51→21:04)
[2019-11-17] MEDS: Ferrous Sulfate 325 MG TAB PO SCH ×2 (08:51→21:04)
[2019-11-17] MEDS: Ascorbic Acid 500 mg Chewable Tablet PO SCH ×2 (08:51→16:30)
[2019-11-17] MEDS: Senokot S 8.6-50 MG TAB PO SCH ×2 (08:51→21:04)
[2019-11-17] MEDS: Famotidine 20 MG TAB PER TUBE SCH ×2 (08:52→21:04)
[2019-11-17] MEDS: Amantadine HCl 100 mg Capsule PO SCH ×2 (08:52→21:05)
[2019-11-17] MEDS: Polyethylene Glycol 3350 17 GM Packet PO SCH (08:54)
[2019-11-17] MEDS: Metamucil PACK PER TUBE SCH (08:55)
[2019-11-17] MEDS: Chlorhexidine Gluconate 15 ML UDCUP SSP SCH ×2 (08:55→21:11)
[2019-11-17] MEDS: Fentanyl 100 MCG/2 ML VIAL SLOW IVP PRN ×2 (09:34→13:45)
[2019-11-17 09:36] LABS: Vancomycin, Trough 16.1 ug/mL
[2019-11-17] MEDS ORDERED: Ibuprofen 200 MG TAB PO SCH (12:00)
--- NOTE | 2019-11-17 12:19 | RAD ---
RADIOGRAPH CHEST 1 VIEW: DATE: 11/17/2019 HISTORY: 24-year-old male with fever. FINDINGS: There are no airspace densities, pulmonary edema, pneumothorax, or cardiomegaly. The lateral costophr enic angles are sharp. There is a tracheostomy tube. A vertically oriented catheter overlies the left neck and chest and left upper quadrant of abdomen. This is new since 11/14/2019. There has been n o other interval change. IMPRESSION: No acute cardiopulmonary findings.
[2019-11-17] MEDS: Bisacodyl 10 MG SUPP PR SCH (13:06)
[2019-11-17] MEDS ORDERED: Fluconazole In NaCl,Iso-Osm 200 MG in Premix Bag 1 BAG IVPB SCH ×2 (14:45→19:45)
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
[2019-11-17] MEDS: cefTRIAXone\\ROCEPHIN 2 GM in Sodium Chloride 0.9% 100 ML IVPB SCH (15:35)
[2019-11-17] MEDS ORDERED: Ibuprofen 600 MG TAB PO SCH (19:15)
[2019-11-17] MEDS: Melatonin 3 MG TAB PO SCH (21:04)
[2019-11-17] MEDS: Sodium Chloride 1 GM TAB PO SCH (21:05)
[2019-11-18] MEDS: Acetaminophen 650 MG/20.3 ML UDCUP PO SCH ×5 (00:01→23:35)
[2019-11-18] MEDS: Ibuprofen 600 MG TAB PO SCH ×5 (00:01→23:35)
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
[2019-11-18] MEDS: Vancomycin 1.5 GRAM/300 ML BAG 1.5 GM in Premix Bag 1 BAG IVPB SCH ×3 (01:53→14:13)
[2019-11-18 04:28] LABS: Anion Gap 16 mmol/L (10-20); BUN (Urea Nitrogen) 15 mg/dL (8.9-20.6); Calc. Creatinine Clearance 190 mL/min (70-130); Calcium 8.5 mg/dL (7.8-10.44); Carbon Dioxide 20 mmol/L (22-29); Chloride 104 mmol/L (98-107); Estimated GFR-MDRD Greater than 90; Glucose 116 mg/dL (70-105); Magnesium 1.9 mg/dL (1.6-2.6); Phosphorus 3.6 mg/dL (2.3-4.7); Potassium 4.5 mmol/L (3.5-5.1); Sodium 135 mmol/L (136-145)
[2019-11-18 05:58] LABS: Band 7 % (5-11); Eosinophils 7 % (0-10); Lymphocytes 24 % (21-51); MDiff Complete? YES; Mean Corpuscular HGB CONC 32.5 g/dL (32.0-36.0); Mean Corpuscular Hemoglobin 27.8 pg (27.0-31.0); Mean Corpuscular Volume 85.6 fL (78.0-98.0); Mean Platelet Volume 8.4 fL (7.4-10.4); Metamyelocyte 1 % (0-0); Monocytes 21 % (0-10); Neutrophil 40 % (42-75); Platelet Count 264 thou/uL (130-400); Platelet Morphology Comment Appears Adequate; RBC Distribution Width 13.7 % (11.5-14.5); Red Blood Cell (RBC) Count 3.22 mill/uL (4.70-6.10); White Blood Cell (WBC) Count 4.2 thou/uL (4.8-10.8)
[2019-11-18 06:05] VITALS: BMI 22.0
[2019-11-18] MEDS: Polyethylene Glycol 3350 17 GM Packet PO SCH (08:02)
[2019-11-18] MEDS: Bisacodyl 10 MG SUPP PR SCH (08:02)
[2019-11-18] MEDS: Senokot S 8.6-50 MG TAB PO SCH ×2 (08:03→20:39)
[2019-11-18] MEDS: Famotidine 20 MG TAB PER TUBE SCH ×2 (08:04→20:39)
[2019-11-18] MEDS: Chlorhexidine Gluconate 15 ML UDCUP SSP SCH ×2 (08:04→20:39)
[2019-11-18] MEDS: Saccharomyces boulardii 250 MG CAP PO SCH ×2 (08:04→20:38)
[2019-11-18] MEDS: Acetaminophen/Codeine 30-300mg Tablet PO PRN ×3 (08:04→20:38)
[2019-11-18] MEDS: Ferrous Sulfate 325 MG TAB PO SCH ×2 (08:04→20:39)
[2019-11-18] MEDS: Ascorbic Acid 500 mg Chewable Tablet PO SCH ×2 (08:05→17:33)
[2019-11-18] MEDS: Amantadine HCl 100 mg Capsule PO SCH ×2 (08:05→20:39)
[2019-11-18] MEDS: Sodium Chloride 1 GM TAB PO SCH ×2 (08:08→20:38)
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
[2019-11-18] MEDS ORDERED: Fluconazole In NaCl,Iso-Osm 400 MG in Premix Bag 1 BAG IVPB SCH ×2 (14:00)
[2019-11-18] MEDS: cefTRIAXone\\ROCEPHIN 2 GM in Sodium Chloride 0.9% 100 ML IVPB SCH (14:12)
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
[2019-11-18] MEDS: Melatonin 3 MG TAB PO SCH (20:39)
[2019-11-19] MEDS: Vancomycin 1.5 GRAM/300 ML BAG 1.5 GM in Premix Bag 1 BAG IVPB SCH (02:33)
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
[2019-11-19 04:23] LABS: Anion Gap 13 mmol/L (10-20); BUN (Urea Nitrogen) 15 mg/dL (8.9-20.6); Calc. Creatinine Clearance 170 mL/min (70-130); Calcium 9.1 mg/dL (7.8-10.44); Carbon Dioxide 27 mmol/L (22-29); Chloride 101 mmol/L (98-107); Estimated GFR-MDRD Greater than 90; Glucose 111 mg/dL (70-105); Magnesium 1.8 mg/dL (1.6-2.6); Potassium 4.3 mmol/L (3.5-5.1); Sodium 137 mmol/L (136-145)
[2019-11-19 04:44] LABS: Band 3 % (5-11); Eosinophils 13 % (0-10); Hemoglobin 9.1 g/dL (14.0-18.0); Lymphocytes 31 % (21-51); MDiff Complete? YES; Mean Corpuscular HGB CONC 33.2 g/dL (32.0-36.0); Mean Corpuscular Hemoglobin 28.3 pg (27.0-31.0); Mean Corpuscular Volume 85.3 fL (78.0-98.0); Mean Platelet Volume 8.7 fL (7.4-10.4); Monocytes 20 % (0-10); Neutrophil 33 % (42-75); Platelet Count 267 thou/uL (130-400); RBC Distribution Width 13.6 % (11.5-14.5); Red Blood Cell (RBC) Count 3.22 mill/uL (4.70-6.10); White Blood Cell (WBC) Count 3.5 thou/uL (4.8-10.8)
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
[2019-11-19] MEDS: Ibuprofen 600 MG TAB PO SCH ×3 (05:22→21:13)
[2019-11-19] MEDS: Acetaminophen 650 MG/20.3 ML UDCUP PO SCH ×4 (05:23→23:21)
[2019-11-19] MEDS: Acetaminophen/Codeine 30-300mg Tablet PO PRN ×3 (07:25→21:11)
[2019-11-19] MEDS: Ascorbic Acid 500 mg Chewable Tablet PO SCH ×2 (07:26→17:29)
[2019-11-19] MEDS: Saccharomyces boulardii 250 MG CAP PO SCH ×2 (08:29→21:12)
[2019-11-19] MEDS: Famotidine 20 MG TAB PER TUBE SCH ×2 (08:29→21:12)
[2019-11-19] MEDS: Ferrous Sulfate 325 MG TAB PO SCH ×2 (08:29→21:13)
[2019-11-19] MEDS: Bisacodyl 10 MG SUPP PR SCH (08:30)
[2019-11-19] MEDS: Polyethylene Glycol 3350 17 GM Packet PO SCH (08:30)
[2019-11-19] MEDS: Senokot S 8.6-50 MG TAB PO SCH ×2 (08:30→21:13)
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
[2019-11-19] MEDS: Sodium Chloride 1 GM TAB PO SCH ×2 (08:49→21:11)
[2019-11-19] MEDS: Amantadine HCl 100 mg Capsule PO SCH ×2 (08:49→21:12)
[2019-11-19] MEDS: Chlorhexidine Gluconate 15 ML UDCUP SSP SCH ×2 (11:31→21:25)
[2019-11-19 15:09] LABS: SARS-CoV-2 NAA Rapid Test Not Detected (NotDetected)
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
[2019-11-19] MEDS: Melatonin 3 MG TAB PO SCH (21:12)
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
[2019-11-20] MEDS: Ibuprofen 600 MG TAB PO SCH ×3 (03:27→13:52)
[2019-11-20] MEDS: Acetaminophen 650 MG/20.3 ML UDCUP PO SCH ×2 (05:33→12:08)
[2019-11-20] MEDS: Acetaminophen/Codeine 30-300mg Tablet PO PRN ×2 (06:19→12:09)
[2019-11-20] MEDS ORDERED: Ondansetron ODT 4 MG TAB PO PRN (07:53)
[2019-11-20] MEDS: Amantadine HCl 100 mg Capsule PO SCH (09:11)
[2019-11-20] MEDS: Saccharomyces boulardii 250 MG CAP PO SCH (09:11)
[2019-11-20] MEDS: Ferrous Sulfate 325 MG TAB PO SCH (09:11)
[2019-11-20] MEDS: Ascorbic Acid 500 mg Chewable Tablet PO SCH (09:11)
[2019-11-20] MEDS: Sodium Chloride 1 GM TAB PO SCH (09:11)
[2019-11-20] MEDS: Famotidine 20 MG TAB PER TUBE SCH (09:11)
[2019-11-20] MEDS: Senokot S 8.6-50 MG TAB PO SCH (09:12)
[2019-11-20] MEDS: Bisacodyl 10 MG SUPP PR SCH (09:12)
[2019-11-20] MEDS: Polyethylene Glycol 3350 17 GM Packet PO SCH (09:12)
[2019-11-20] MEDS: Chlorhexidine Gluconate 15 ML UDCUP SSP SCH (09:12)
[2019-11-20] MEDS ORDERED: Promethazine HCl 6.25 MG/5 ML Syrup PER TUBE PRN (09:27)
[2019-11-20 12:50] VITALS: TEMP 98.7
[2019-11-20 13:05] VITALS: BP 113/79
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
== END 2019-11-20 15:30 | disposition short-term general hospital (02) | DRG 3 ==
LOC: EDBD 15:10 → ERS 15:10 → SDC 16:35 → CCU 16:35
PROVIDERS: ADMIT Surgery; ATTEND Surgery
PROC: 00NC0ZZ Release Cerebellum, Open Approach (ICD-10-PCS; 2019-10-23)
PROC: 5A1955Z Respiratory Ventilation, Greater than 96 Consecutive Hours (ICD-10-PCS; 2019-10-23)
PROC: 00U20KZ Supplement Dura Mater with Nonautologous Tissue Substitute, Open Approach (ICD-10-PCS; 2019-10-23)
PROC: 0W9 Anatomical Regions, General, Drainage (ICD-10-PCS; 2019-10-23)
PROC: 08N0XZZ Release Right Eye, External Approach (ICD-10-PCS; 2019-10-23)
PROC: 0BH17EZ Insertion of Endotracheal Airway into Trachea, Via Natural or Artificial Opening (ICD-10-PCS; 2019-10-23)
PROC: 30233N1 Transfusion of Nonautologous Red Blood Cells into Peripheral Vein, Percutaneous Approach (ICD-10-PCS; 2019-10-23)
PROC: 0T9B70Z Drainage of Bladder with Drainage Device, Via Natural or Artificial Opening (ICD-10-PCS; 2019-10-23)
PROC: 08QRXZZ Repair Left Lower Eyelid, External Approach (ICD-10-PCS; 2019-10-23)
PROC: 0HQ1XZZ Repair Face Skin, External Approach (ICD-10-PCS; 2019-10-23)
PROC: 0CQ7XZZ Repair Tongue, External Approach (ICD-10-PCS; 2019-10-23)
PROC: 0B113F4 Bypass Trachea to Cutaneous with Tracheostomy Device, Percutaneous Approach (ICD-10-PCS; principal; 2019-10-25)
PROC: 0DH63UZ Insertion of Feeding Device into Stomach, Percutaneous Approach (ICD-10-PCS; 2019-10-25)
PROC: 06H03DZ Insertion of Intraluminal Device into Inferior Vena Cava, Percutaneous Approach (ICD-10-PCS; 2019-10-26)
PROC: 02HV33Z Insertion of Infusion Device into Superior Vena Cava, Percutaneous Approach (ICD-10-PCS; 2019-10-26)
PROC: 0NSV04Z Reposition Left Mandible with Internal Fixation Device, Open Approach (ICD-10-PCS; 2019-10-28)
PROC: 0NST04Z Reposition Right Mandible with Internal Fixation Device, Open Approach (ICD-10-PCS; 2019-10-28)
PROC: 009630Z Drainage of Cerebral Ventricle with Drainage Device, Percutaneous Approach (ICD-10-PCS; 2019-11-04)
PROC: 0T2BX0Z Change Drainage Device in Bladder, External Approach (ICD-10-PCS; 2019-11-05)
PROC: 00160J6 Bypass Cerebral Ventricle to Peritoneal Cavity with Synthetic Substitute, Open Approach (ICD-10-PCS; 2019-11-15)
PROC: 0WJG4ZZ Inspection of Peritoneal Cavity, Percutaneous Endoscopic Approach (ICD-10-PCS; 2019-11-15)
DX: S06.5X9A Traumatic subdural hemorrhage with loss of consciousness of unspecified duration, initial encounter (principal); G93.6 Cerebral edema; G93.5 Compression of brain; J96.00 Acute respiratory failure, unspecified whether with hypoxia or hypercapnia; J15.1 Pneumonia due to Pseudomonas; S27.322A Contusion of lung, bilateral, initial encounter; S27.0XXA Traumatic pneumothorax, initial encounter; S36.113A Laceration of liver, unspecified degree, initial encounter; S05.42XA Penetrating wound of orbit with or without foreign body, left eye, initial encounter; D62 Acute posthemorrhagic anemia; N17.9 Acute kidney failure, unspecified; S26.91XA Contusion of heart, unspecified with or without hemopericardium, initial encounter; S36.039A Unspecified laceration of spleen, initial encounter; T82.514A Breakdown (mechanical) of infusion catheter, initial encounter; T82.868A Thrombosis due to vascular prosthetic devices, implants and grafts, initial encounter; G81.94 Hemiplegia, unspecified affecting left nondominant side; G96.0 Cerebrospinal fluid leak; G91.9 Hydrocephalus, unspecified; R40.2362 Coma scale, best motor response, obeys commands, at arrival to emergency department; R40.2112 Coma scale, eyes open, never, at arrival to emergency department; R40.2242 Coma scale, best verbal response, confused conversation, at arrival to emergency department; V83.6XXA Passenger of special industrial vehicle injured in nontraffic accident, initial encounter; S06.379A Contusion, laceration, and hemorrhage of cerebellum with loss of consciousness of unspecified duration, initial encounter; Z20.828 Contact with and (suspected) exposure to other viral communicable diseases; S05.11XA Contusion of eyeball and orbital tissues, right eye, initial encounter; S01.412A Laceration without foreign body of left cheek and temporomandibular area, initial encounter; S03.2XXA Dislocation of tooth, initial encounter; S01.512A Laceration without foreign body of oral cavity, initial encounter; I45.10 Unspecified right bundle-branch block; G93.2 Benign intracranial hypertension; S02.85XA Fracture of orbit, unspecified, initial encounter for closed fracture; S02.621A Fracture of subcondylar process of right mandible, initial encounter for closed fracture; S02.66XA Fracture of symphysis of mandible, initial encounter for closed fracture; T79.6XXA Traumatic ischemia of muscle, initial encounter; E83.42 Hypomagnesemia; E87.6 Hypokalemia; E83.39 Other disorders of phosphorus metabolism; Y83.8 Other surgical procedures as the cause of abnormal reaction of the patient, or of later complication, without mention of misadventure at the time of the procedure; D47.3 Essential (hemorrhagic) thrombocythemia
CPT/HCPCS: 31500; 36415; 36416; 36430; 36600; 37191; 51702; 70450; 70486; 70498; 71045; 71260; 72125; 72141; 72170; 74177; 76377; 76942; 80048; 80053; 80185; 80202; 80306; 80307; 81001; 81003; 81015; 82550; 82553; 82565; 82805; 82945; 83605; 83690; 83735; 84100; 84145; 84157; 84484; 85007; 85025; 85027; 85049; 85300; 85362; 85379; 85384; 85610; 85730; 86850; 86900; 86901; 87040; 87070; 87086; 87205; 89051; 89220; 90471; 90715; 93005; 93010; 93306; 93970; 94002; 94003; 94640; 94760; 96365; 96374; 96375; C1713; C1751; C1769; C1880; G0390; J0171; J0690; J0692; J0696; J1100; J1165; J1200; J1450; J1644; J1650; J1815; J1885; J1940; J2001; J2150; J2250; J2370; J2405; J2543; J2704; J3010; J3370; J3475; J3480; J3490; J7030; J7050; J7620; J7799; P9016; P9045; Q0162; Q0163; Q0169; Q2009; Q9967; S0020; S0028; U0002